=== PATIENT | female | born 1985 | race American Indian/Alaskan Native ===

== ENCOUNTER 2019-01-08 20:35 | Observation (INO) | payer MEDICAID ==
--- NOTE | 2019-01-08 21:06 | EDM.PDOC ---
ED HPI GENERAL MEDICAL PROBLEM - General Chief Complaint: General Stated Complaint: CHEST PAIN/UNABLE TO EAT/NAUSEA Time Seen by Provider: 01/08/19 21:05 Source of Information: Reports: Patient History Limitations: Reports: No Limitations - History of Present Illness INITIAL COMMENTS - FREE TEXT/NARRATIVE: 33-year-old female of [place] ancestry presents to the ED with multiple complaints. Chief complaint is inability to eat due to recurrent nausea and vomiting on a daily basis. She currently has some sternal left-sided chest pain which she described as sharp and stabbing and intermittent. Emesis has never contained any blood. Stools have been hard and painful to pass because she is unable to eat much.She does have a lot of heartburn and indigestion. Feels dizzy and lightheaded. She reports she's lost about 42 pounds over the last 3 months due to not being able to taper or keep food down. She appreciates that she is bruising much more easily than normal spontaneous bruises occur in her abdominal wall and her lower extremities particularly thighs for no good reason. She also has generalized pruritus particularly in her lower extremities and abdomen. She states that the emesis is never contained any blood. She states she was seen in [place] at one of the hospitals about 3 weeks ago and told that her magnesium and potassium were very low. I think she was advised to be admitted at that time but refused because of needing to look after her kids. She denies any intravenous drug abuse in the past. No blood transfusions. She came to the ED primarily because the abdominal pain seemed to be getting some much worse the last few days. She feels bloated and distended and can't fit into her jeans anymore. Has to wear loose fitting clothing. Onset: Gradual (Symptoms started about 3 months ago.) Duration: Week(s):, Chronic, Getting Worse Location: Reports: Generalized (Generalized sense of illness weakness weight loss abdominal distention, generalized pruritus, easy bruising) Quality: Reports: Other Severity: Moderate (See history of present illness) Improves with: Reports: None Worsens with: Reports: None Context: Reports: Other (Gradually getting more ill over the last 2-3 months with 45 pound weight loss.). Denies: Activity, Exercise, Lifting, Sick Contact , Trauma Associated Symptoms: Reports: Loss of Appetite, Malaise, Nausea/Vomiting, Shortness of Breath, Weakness, Other (Generalized. Feels abdominal bloating. Generalized pruritus. Easy bruising.). Denies: Confusion, Chest Pain, Cough, cough w sputum, Diaphoresis, Fever/Chills, Headaches, Rash (Intractable particular first thing in the mornings.), Seizure, Syncope (Mild.) Treatments DIRECTOR CHILD ABUSE THERAPY: Reports: Other (see below) (9.) - Related Data Allergies Allergy/AdvReac Type Severity Reaction Status Date / Time No Known Allergies Allergy Verified 01/08/19 20:42 Home Meds: Home Meds . 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: Reports: Musculoskeletal History: Reports: Fracture Other Musculoskeletal History: Tendon repair in arm Social & Family History - Family History Family Medical History: Noncontributory - Tobacco Use Smoking Status *Q: Former Smoker Used Tobacco, but Quit: Yes Month/Year Tobacco Last Used: 2009 - Recreational Drug Use Recreational Drug Use: No Other Recreational Drug Type: CBD - Living Situation & Occupation Living situation: Reports: Single Occupation: Unemployed ED ROS GENERAL - Review of Systems Review Of Systems: See Below Constitutional: Reports: Malaise, Weakness, Fatigue, Decreased Appetite (45-47 pound weight loss estimated in the last 3 months.), Weight Loss. Denies: Fever , Chills, Night Sweats, Diaphoresis, Weight Gain HEENT: Reports: Glasses Respiratory: Reports: Shortness of Breath. Denies: Wheezing, Pleuritic Chest Pain (At times.), Cough, Sputum, Hemoptysis Cardiovascular: Reports: Dyspnea on Exertion, Lightheadedness. Denies: Chest Pain, Blood Pressure Problem, Claudication, Edema, Orthopnea Endocrine: Reports: Fatigue GI/Abdominal: Reports: Abdominal Pain (See history present illness), Constipation, Decreased Appetite, Nausea, Vomiting (Intractable nausea and vomiting) : Reports: Other (Appreciates urine is darker byron in color and more concentrated than normal.) Musculoskeletal: Reports: Joint Pain (Knees hips or back) Skin: Reports: Bruising, Other (Notes that she bruises very easily. Complains of generalized pruritus without development of any rash.) Neurological: Reports: Dizziness, Difficulty Walking, Weakness. Denies: Confusion, Headache, Numbness, Syncope, Tingling, Tremors, Change in Speech Psychiatric: Reports: No Symptoms Hematologic/Lymphatic: Reports: Easy Bruising Immunologic: Reports: No Symptoms ED EXAM, GENERAL - Physical Exam Exam: See Below Exam Limited By: No Limitations General Appearance: Alert, WD/WN, Mild Distress, Other (Does have scleral icterus.) Eye Exam: Bilateral Eye: Normal Inspection, PERRL, Other (Mild bilateral scleral icterus.) Throat/Mouth: Other (Tongue is dry and coated.) Head: Atraumatic, Normocephalic Neck: Normal Inspection, Supple, Non-Tender, Full Range of Motion. No: Carotid Bruit, Lymphadenopathy (L), Lymphadenopathy (R) Respiratory/Chest: No Respiratory Distress, Lungs Clear, Normal Breath Sounds, No Accessory Muscle Use, Chest Non-Tender Cardiovascular: Normal Peripheral Pulses, Regular Rate, Rhythm, No Edema, No Gallop, No Murmur, No Rub Peripheral Pulses: 3+: Posterior Tibial (L), Posterior Tibial (R), Dorsalis Pedis (L), Dorsalis Pedis (R) GI/Abdominal: Normal Bowel Sounds, Soft, Tender (Tenderness in the distribution of the liver right upper quadrant of the abdomen. The liver itself is not palpable no splenomegaly identified. Suspect ascites but could not detect a good fluid wave.). No: No Mass, Pelvis Stable Back Exam: Normal Inspection, Full Range of Motion. No: CVA Tenderness (L), CVA Tenderness (R) Extremities: Normal Inspection, Normal Range of Motion. No: Pedal Edema, Joint Swelling Neurological: Alert, Oriented, CN II-XII Intact, Normal Cognition Psychiatric: Normal Affect Skin Exam: Other (Skin is mildly jaundiced again hard to appreciate as she is of [place] ancestry.) EKG INTERPRETATION EKG Date: 01/08/19 Time: 20:45 Rhythm: Other (Sinus tachycardia 113 per minute) Rate (Beats/Min): 113 Kennard: Normal P-Wave: Present QRS: Other (Decreased voltage both limb and precordial leads.) ST-T: Other (There is T-wave inversion V1 and V2 and then marked decreased voltage both limb and precordial leads.) QT: Prolonged (Mildly prolonged) EKG Interpretation Comments: Abnormal ECG Course - Vital Signs Last Recorded V/S: Last Vital Signs Temp 36.8 C 01/08/19 20:42 Pulse 116 H 01/08/19 20:42 Resp 16 01/08/19 20:42 BP 131/72 01/08/19 20:42 Pulse Ox 100 01/08/19 20:42 Orthostatic Blood Pressure [ 128/76 Standing] Orthostatic Blood Pressure [ 130/72 Sitting] Orthostatic Blood Pressure [ 122/68 Supine] - Orders/Labs/Meds Orders: Active Orders 24 hr Category Date Time Status Admission Status [Patient Status] [ADT] Routine ADT 01/08/19 23:39 Ordered EKG Documentation Completion [RC] STAT Care 01/08/19 21:16 Active Orthostatic Vital Signs [RC] ASDIRECTED Care 01/08/19 21:06 Active Abdomen Pelvis w Cont [CT] Stat Exams 01/08/19 22:18 Taken URINALYSIS W/MICROSCOPIC [UA W/MICROSCOPIC] [URIN] Stat Lab 01/08/19 23:30 Ordered Dextrose 5%-Lactated Ringers 1,000 ml Med 01/08/19 21:15 Active IV ASDIRECTED Magnesium Sulfate/Water [Magnesium Sulfate in Water Med 01/08/19 22:54 Active Premix] 4 gm Premix Bag 1 bag IV ONETIME Medication Orders Dextrose/Lactated Ringer's (Dextrose 5%-Lactated Ringers) 1,000 mls @ 500 mls/ hr IV ASDIRECTED [facility] Last Admin: 01/08/19 21:44 Dose: 500 mls/hr Magnesium Sulfate 4 gm/ Premix 50 mls @ 12.5 mls/hr IV ONETIME ONE Stop: 01/09/19 02:53 Last Admin: 01/08/19 23:30 Dose: 12.5 mls/hr Labs: Laboratory Tests 01/08/19 01/08/19 01/08/19 Range/Units 20:55 20:55 20:55 WBC 14.81 H (3.98-10.04) K/mm3 RBC 2.66 L (3.98-5.22) M/mm3 Hgb 9.2 L D (11.2-15.7) gm/L Hct 27.7 L (34.1-44.9) % MCV 104.1 H D (79.4-94.8) fl MCH 34.6 H (25.6-32.2) pg MCHC 33.2 (32.2-35.5) g/dl RDW Std Deviation 56.5 H (36.4-46.3) fL Plt Count 210 (182-369) K/mm3 MPV 9.4 (9.4-12.3) fl Neutrophils % (Manual) 74 H (40-60) % Band Neutrophils % 0 (0-10) % Lymphocytes % (Manual) 19 L (20-40) % Atypical Lymphs % 0 % Monocytes % (Manual) 4 (2-10) % Eosinophils % (Manual) 3 (0.7-5.8) % Basophils % (Manual) 0 L (0.1-1.2) Toxic Granulation Few Platelet Estimate Adequate Anisocytosis 2+ moderate Macrocytosis 2+ moderate PT 20.4 H (9.5-12.1) SECONDS INR 1.90 APTT 44 H (24-31) SECONDS Sodium 135 L (136-145) mEq/L Potassium 2.8 L (3.5-5.1) mEq/L Chloride 101 (98-107) mEq/L Carbon Dioxide 24 (21-32) mEq/L Anion Gap 12.8 (5-15) BUN 6 L (7-18) mg/dL Creatinine 1.0 (0.55-1.02) mg/dL Est Cr Clr Drug Dosing 67.43 mL/min Estimated GFR (MDRD) > 60 (>60) mL/min BUN/Creatinine Ratio 6.0 L (14-18) Glucose 141 H (74-106) mg/dL Calcium 7.7 L (8.5-10.1) mg/dL Magnesium 1.4 L (1.8-2.4) mg/dl Total Bilirubin 4.3 H (0.2-1.0) mg/dL GGT 115 H (5-55) U/L AST 99 H (15-37) U/L ALT 34 (14-59) U/L Alkaline Phosphatase 97 (46-116) U/L CK-MB (CK-2) < 0.5 (0-3.6) ng/ml Troponin I < 0.017 (0.00-0.056) ng/mL C-Reactive Protein 3.6 H* (<1.0) mg/dL NT-Pro-B Natriuret Pep (0-125) pg/mL Total Protein 8.6 H (6.4-8.2) g/dl Albumin 1.5 L (3.4-5.0) g/dl Globulin 7.1 gm/dL Albumin/Globulin Ratio 0.2 L (1-2) Lipase 91 (73-393) U/L Urine Color (Yellow) Urine Appearance (Clear) Urine pH (5.0-8.0) Ur Specific [place] (1.005-1.030) Urine Protein (Negative) Urine Glucose (UA) (Negative) Urine Ketones (Negative) Urine Occult Blood (Negative) Urine Nitrite (Negative) Urine Bilirubin (Negative) Urine Urobilinogen (0.2-1.0) Ur Leukocyte Esterase (Negative) H. pylori IgG Antibody (NEGATIVE) Hepatitis C Antibody (NEGATIVE) 01/08/19 01/08/19 01/08/19 Range/Units 20:55 20:55 23:30 WBC (3.98-10.04) K/mm3 RBC (3.98-5.22) M/mm3 Hgb (11.2-15.7) gm/L Hct (34.1-44.9) % MCV (79.4-94.8) fl MCH (25.6-32.2) pg MCHC (32.2-35.5) g/dl RDW Std Deviation (36.4-46.3) fL Plt Count (182-369) K/mm3 MPV (9.4-12.3) fl Neutrophils % (Manual) (40-60) % Band Neutrophils % (0-10) % Lymphocytes % (Manual) (20-40) % Atypical Lymphs % % Monocytes % (Manual) (2-10) % Eosinophils % (Manual) (0.7-5.8) % Basophils % (Manual) (0.1-1.2) Toxic Granulation Platelet Estimate Anisocytosis Macrocytosis PT (9.5-12.1) SECONDS INR APTT (24-31) SECONDS Sodium (136-145) mEq/L Potassium (3.5-5.1) mEq/L Chloride (98-107) mEq/L Carbon Dioxide (21-32) mEq/L Anion Gap (5-15) BUN (7-18) mg/dL Creatinine (0.55-1.02) mg/dL Est Cr Clr Drug Dosing mL/min Estimated GFR (MDRD) (>60) mL/min BUN/Creatinine Ratio (14-18) Glucose (74-106) mg/dL Calcium (8.5-10.1) mg/dL Magnesium (1.8-2.4) mg/dl Total Bilirubin (0.2-1.0) mg/dL GGT (5-55) U/L AST (15-37) U/L ALT (14-59) U/L Alkaline Phosphatase (46-116) U/L CK-MB (CK-2) (0-3.6) ng/ml Troponin I (0.00-0.056) ng/mL C-Reactive Protein (<1.0) mg/dL NT-Pro-B Natriuret Pep 608 H (0-125) pg/mL Total Protein (6.4-8.2) g/dl Albumin (3.4-5.0) g/dl Globulin gm/dL Albumin/Globulin Ratio (1-2) Lipase (73-393) U/L Urine Color [place] H (Yellow) Urine Appearance Cloudy H (Clear) Urine pH 5.5 (5.0-8.0) Ur Specific [place] 1.020 (1.005-1.030) Urine Protein 2+ H (Negative) Urine Glucose (UA) Trace H (Negative) Urine Ketones 1+ H (Negative) Urine Occult Blood 3+ H (Negative) Urine Nitrite Negative (Negative) Urine Bilirubin 3+ H (Negative) Urine Urobilinogen 4.0 H (0.2-1.0) Ur Leukocyte Esterase Negative (Negative) H. pylori IgG Antibody Negative (NEGATIVE) Hepatitis C Antibody Negative (NEGATIVE) Meds: Medications Generic Name Dose Route Start Last Admin Trade Name Freq PRN Reason Stop Dose Admin Dextrose/Lactated Ringer's 1,000 mls @ 500 mls/hr 01/08/19 21:15 01/08/19 21: 44 Dextrose 5%-Lactated Ringers IV 500 mls/hr ASDIRECTED JOHN Administration Magnesium Sulfate 4 gm/ Premix 50 mls @ 12.5 mls/hr 01/08/19 22:54 01/08/19 23:30 IV 01/09/19 02:53 12.5 mls/hr ONETIME ONE Administration Discontinued Medications Generic Name Dose Route Start Last Admin Trade Name Freq PRN Reason Stop Dose Admin Hydromorphone HCl 0.5 mg 01/08/19 21:15 01/08/19 21:46 Dilaudid IVPUSH 01/08/19 21:16 0.5 mg ONETIME ONE Administration Iohexol 100 ml 01/08/19 22:52 01/08/19 23:22 Omnipaque-300 IVPUSH 01/08/19 22:53 100 ml ONETIME ONE Administration Metoclopramide HCl 10 mg 01/08/19 21:14 01/08/19 21:45 Reglan IVPUSH 01/08/19 21:15 10 mg ONETIME ONE Administration Ondansetron HCl 4 mg 01/08/19 23:37 01/08/19 23:41 Zofran IVPUSH 01/08/19 23:38 4 mg ONETIME ONE Administration - Radiology Interpretation Free Text/Narrative:: 33-year-old female whom [place] ancestry presents to the ED not feeling well for the better part of 3 months. She states she used to drink alcohol heavily up until 3 months ago when she quit. Since that time she is continuing to have intermittent nausea and vomiting which is usually bilious without any hematemesis. She is appreciated a 47 pound weight loss over the last 3 months. She feels that her abdomen is more distended than normal and cannot fit into her jeans. She has generalized pruritus and has appreciated that she bruises very easily. She states she was seen in [place] about 3 weeks ago not sure which hospital told that she had low serum potassium level and serum magnesium level. I believe she was instructed to stay in the hospital but she declined due to need to look after her children. On examination she is showing signs and symptoms of cirrhosis of the liver. She has mild scleral icterus. Marked tenderness right upper quadrant of the abdomen without any obvious hepatomegaly or splenomegaly. No caput medusa. She has numerous superficial ecchymoses suggesting inability to clot well. She complains of generalized pruritus with excoriations on both lower extremities from scratching. Clinically she appears to have some mild ascites. Plan lab work to include clotting times and GGT. If renal function is okay then we'll proceed with CT of the abdomen with IV contrast to assess the degree of ascites and see if there is any significant portal hypertension. - Re-Assessments/Exams Free Text/Narrative Re-Assessment/Exam: 01/08/19 22:05 Labs reveal an elevated white count at 14.81 with 74% neutrophils and no bands reported. Hemoglobin is low at 9.2. Hematocrit is 27.7. MCV is 104.1. Platelet count is 210,000. The slight shows 2+ anisocytosis and 2+ macrocytosis. PT is 20.4 with an INR of 1.90. PTT is 44 i.e. auto anticoagulated. 01/08/19 22:17 Sodium is 135. Potassium is 2.8. Chloride is 101 with a bicarbonate of 24. And a gap is 12.8. BUN is 6 with a creatinine of 1.0. Estimated GFR is greater than 60. Glucose is 141. Calcium is low at 7.7. Magnesium is low at 1.4. Total bilirubin is 4.3. GGT 1:15 mildly elevated. AST is 99 with an ALT of 34. Alkaline phosphatase is normal at 97. CK-MB fraction less than 0.5. Troponin I less than 0.017. C-reactive protein is 3.6. BNP is 608. Total protein is 8.6 with an albumin fraction of 1.5. Lipase is 91. H. pylori was negative. Her kidney function is good enough to proceed with CT the abdomen with IV contrast only to confirm clinical suspicion of cirrhosis of the liver and to confirm whether or not there is portal hypertension and the amount of ascites. 01/08/19 23:30: CT the abdomen and pelvis is before then performed with IV contrast only. Lower portions of the visualized lung parnell appear clear. Cardiac silhouette appears to be normal as well. The abdomen reveals a large amount of ascites that succumbed circumvents both the liver and the spleen. She has an IUD and a normal-size uterus. Pancreas is difficult to see. Kidneys appear to be mildly atrophic without stones or obstruction. Adrenal glands do not appear to be enlarged and are difficult to identify particular in the right side due to ascites. Mild amount of edema throughout the mesentery. Bowel gas pattern appears to be normal. The liver itself appears to be homogeneous. It does not appear to be abnormal in size or shape. No obvious evidence of portal hypertension evident. Discussed the case with Dr. Griffith- web production manager hospitalist and plan will be to admit her to the [facility] surgery floor for observation status primarily to improve her hypokalemia and hypomagnesemia overnight with intravenous replacement therapy. Suggest starting on Aldactone 25 mg twice daily to prevent hypokalemia and to start working as a diuretic. She should also be started on Lasix 40 mg daily to help with her ascites. Lactulose 20 g ideally twice daily if she can tolerate it. Bridge orders will be written. She will have repeat magnesium and potassium levels checked later this tomorrow morning. Departure - Departure Time of Disposition: 23:46 Disposition: Refer to Observation Condition: Fair Clinical Impression: Blood coagulation disorder, Hypomagnesemia, Hypokalemia, Intractable nausea and vomiting Cirrhosis of liver with ascites Qualifiers: Hepatic cirrhosis type: alcoholic cirrhosis Qualified Code(s): K70.31 - Alcoholic cirrhosis of liver with ascites - Discharge Information *PRESCRIPTION DRUG MONITORING PROGRAM REVIEWED*: No *COPY OF PRESCRIPTION DRUG MONITORING REPORT IN PATIENT SKY: No Referrals: PCP,None [Primary Care Provider] - Forms: ED Department Discharge - My Orders Last 24 Hours: My Active Orders 01/08/19 21:06 Orthostatic Vital Signs [RC] ASDIRECTED 01/08/19 21:15 Dextrose 5%-Lactated Ringers 1,000 ml IV ASDIRECTED 01/08/19 21:16 EKG Documentation Completion [RC] STAT 01/08/19 22:18 Abdomen Pelvis w Cont [CT] Stat 01/08/19 22:54 Magnesium Sulfate/Water [Magnesium Sulfate in Water Premix] 4 gm Premix Bag 1 bag IV ONETIME 01/08/19 23:30 URINALYSIS W/MICROSCOPIC [UA W/MICROSCOPIC] [URIN] Stat 01/08/19 23:39 Admission Status [Patient Status] [ADT] Routine - Assessment/Plan Last 24 Hours: My Active Orders 01/08/19 21:06 Orthostatic Vital Signs [RC] ASDIRECTED 01/08/19 21:15 Dextrose 5%-Lactated Ringers 1,000 ml IV ASDIRECTED 01/08/19 21:16 EKG Documentation Completion [RC] STAT 01/08/19 22:18 Abdomen Pelvis w Cont [CT] Stat 01/08/19 22:54 Magnesium Sulfate/Water [Magnesium Sulfate in Water Premix] 4 gm Premix Bag 1 bag IV ONETIME 01/08/19 23:30 URINALYSIS W/MICROSCOPIC [UA W/MICROSCOPIC] [URIN] Stat 01/08/19 23:39 Admission Status [Patient Status] [ADT] Routine
[2019-01-08] MEDS ORDERED: Metoclopramide 10 MG/2 ML SDV IVPUSH ONE (21:14)
[2019-01-08] MEDS ORDERED: HYDROmorphone 1 MG/ML Syringe IVPUSH ONE (21:15)
[2019-01-08] MEDS ORDERED: Dextrose 5%-Lactated Ringers 1,000 ML IV SCH (21:15)
[2019-01-08] MEDS ORDERED: Iohexol 647 MG/ML 100 ML Bottle IVPUSH ONE (22:52)
[2019-01-08] MEDS ORDERED: Magnesium Sulfate/Water 4 GM in Premix Bag 1 BAG IV ONE (22:54)
[2019-01-08] MEDS ORDERED: Ondansetron 4 MG/2 ML SDV IVPUSH ONE (23:37)
[2019-01-09] MEDS ORDERED: Scopolamine 1.5 MG Transdermal Patch TOP ONE (00:20)
[2019-01-09] MEDS ORDERED: Metoclopramide 10 MG/2 ML SDV IVPUSH PRN (00:37)
[2019-01-09] MEDS ORDERED: Sodium Chloride 0.9% 1,000 ML IV SCH (00:45)
[2019-01-09] MEDS: Potassium Chloride 10 MEQ in Premix Bag 1 BAG IV SCH ×3 (01:00→03:17)
[2019-01-09] MEDS ORDERED: Ondansetron 4 MG/2 ML SDV IVPUSH PRN (01:40)
[2019-01-09] MEDS ORDERED: Lactulose Soln 10 GM/15 ML 30 ML UD Cup PO SCH (09:00)
[2019-01-09] MEDS ORDERED: Spironolactone 25 MG Tab PO SCH (09:00)
--- NOTE | 2019-01-09 09:02 | CT ---
CT abdomen and pelvis Technique: Multiple axial sections were obtained from above the dome of the diaphragm inferiorly through the pubic symphysis. Intravenous contrast was utilized. No oral contrast was utilized. Delayed images were obtained through the abdomen as well as bladder. Comparison: No prior abdominal imaging. Findings: Mild atelectasis is noted within both lung bases. Liver is mildly nodular having the appearance of cirrhosis. Ascites which is moderate amount is seen within the abdomen and pelvis. Spleen measures at the upper limits of normal at 13.1 cm. No varicosities are appreciated at this time. Gallbladder is somewhat dilated without calcified gallstones. Pancreas shows no discrete abnormality. Adrenal glands show no nodule. Kidneys show symmetric contrast enhancement without hydronephrosis or mass. Aorta shows no aneurysm. No retroperitoneal adenopathy or mesenteric abnormalities are seen. IUD is present within the uterus. No pelvic mass or adenopathy is seen. No free fluid or inflammatory change is seen. No bowel dilatation is identified. Delayed images show no contrast within the bladder suggesting dehydration. Impression: 1. Cirrhotic change within the liver with moderate ascites. Spleen size at the upper limits of normal at 13.1 cm. 2. Dilated gallbladder without calcified gallstones. Findings may relate to fasting state. 3. No contrast is seen within the bladder on delayed images raising the possibility of dehydration. 4. Other incidental findings. Diagnostic code #3 I agree with preliminary report from [facility], finalized on 01/09/19, 1:22 AM Central Time
[2019-01-09] MEDS ORDERED: oxyCODONE 5 MG Tab PO PRN (11:23)
--- NOTE | 2019-01-09 11:30 | US ---
Abdominal ultrasound: Multiple real-time images were obtained. Comparison: Prior CT abdomen and pelvis exam of 01/08/19. Liver is echogenic with nodular edges which is felt compatible with cirrhotic change. Ascites is seen within the abdomen. Gallbladder shows no shadowing gallstones. No gallbladder wall thickening is seen. No biliary duct dilatation is seen. Proximal aorta is seen and appears unremarkable. Distal aorta is obscured from bowel gas. Majority of the pancreas is obscured from bowel gas. Kidneys show no hydronephrosis or discrete mass. Right kidney length is 10.8 cm, left kidney length is 10.3 cm. Spleen size at the upper limits of normal at 13.5 cm. Portal vein shows normal hepatopedal flow. Inferior vena cava is patent. Impression: 1. Gallbladder shows no shadowing gallstones, gallbladder wall thickening or biliary duct dilatation. 2. Cirrhotic change within the liver. 3. Ascites. 4. Spleen size at the upper limits of normal in length. Diagnostic code #3
--- NOTE | 2019-01-09 12:49 | PCM.HP ---
H&P History of Present Illness - General Date of Service: 01/09/19 Admit Problem/Dx: Admission Diagnosis/Problem Admission Diagnosis/Problem Cirrhosis of liver with ascites Source of Information: Patient, Provider - History of Present Illness Initial Comments - Free Text/Narative: 33-year-old female is admitted under observation status from the emergency room for hypokalemia and hypomagnesemia. Patient states that over the last couple months she has been feeling poorly. She stopped drinking 2 months ago but previous to that was drinking 99 proof alcohol shots 2-3 per day. We will last couple of months she has had a 42 pound weight loss. She states that she's had progressive abdominal pain worse on the right side and epigastrium. She has been vomiting off and on for the last couple of months. She states that she vomits at least once a day. She denies any blood in her vomit. She states that is usually uses for food that she previously 8. Spicy foods and pizza are worse. She is generally settle okay. [place] juice makes her stomach hurt. She has been constipated without any black tarry stools or blood in her stools. She complains of headaches, weakness, fatigue, leg itching and dryness, low back pain where she had epidurals. She complains of heartburn and indigestion feels dizzy and lightheaded. She has been bruising more easily and has had spontaneous bruising of her abdomen and lower extremities. Apparently, she was seen in [place] [id number] to the [facility] within the last month and had a low magnesium and potassium. She did not want to be admitted and refused admission. Patient does have 2 children with no one to care for them when she is gone. She has a sister with end-stage liver disease at 34 years of age and her mother of liver disease. She has alcoholism throughout her family including close in distant relatives. She has been using CBD oil and marijuana coming for nausea. Last use was 2 weeks ago. in the emergency room patient was started on replacement. Both her magnesium and potassium. Repeat magnesium and complex metabolic panel did show improvement and normalization of her potassium and magnesium. INR was 1.9 with an initial GGT of 115, AST 99, ALT 34, white count 14.8. ECG done in the emergency room showed sinus tachycardia 113 bpm with T-wave inversion anteriorly and low voltage in the anterior lateral leads. CT scan was done in the emergency room which showed: 1 cirrhotic change within the liver with moderate ascites. Spleen size at the upper limits of normal at 13.1 cm. 2. Dilated gallbladder without calcified gallstones. Findings may be related to fasting state. 3. No contrast is seen within the bladder on delayed images raising the possibility of dehydration. 4. Other incidental findings. Abdominal Pain Score (Numeric/FACES): 7 - Related Data Allergies/Adverse Reactions: Allergies Allergy/AdvReac Type Severity Reaction Status Date / Time No Known Allergies Allergy Verified 01/08/19 20:42 Home Medications: Home Meds . 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: Musculoskeletal History: Reports: Fracture Other Musculoskeletal History: Tendon repair in arm, ankle broken Neurological History: Reports: Migraines Psychiatric History: Reports: Depression Other Dermatologic History: ingrown hairs in armpits - Past Surgical History GI Surgical History: Reports: None Neurological Surgical History: Reports: None Musculoskeletal Surgical History: Reports: None Dermatological Surgical History: Reports: Other (See Below) Social & Family History - Family History Family Medical History: Noncontributory - Tobacco Use Smoking Status *Q: Never Smoker Used Tobacco, but Quit: Yes Month/Year Tobacco Last Used: 2009 Second Hand Smoke Exposure: No - Caffeine Use Caffeine Use: Reports: Coffee, Soda, Tea - Alcohol Use Date of Last Drink: 10/17/18 - Recreational Drug Use Recreational Drug Use: Yes Recreational Drug Type: Reports: Other (see below) Other Recreational Drug Type: CBD oil and gummies- took everyday to help with nausea, stopped 1 week ago - Living Situation & Occupation Living situation: Reports: Single Occupation: Unemployed H&P Review of Systems - Review of Systems: Review Of Systems: ROS reveals no pertinent complaints other than HPI. General: Reports: Malaise, Weakness, Fatigue Exam - Exam Exam: See Below - Vital Signs Vital Signs: Last Vital Signs Temp 97.7 F 01/09/19 03:15 Pulse 85 01/09/19 03:15 Resp 16 01/09/19 03:15 BP 105/49 L 01/09/19 03:15 Pulse Ox 96 01/09/19 11:18 Orthostatic Blood Pressure [ 128/76 Standing] Orthostatic Blood Pressure [ 130/72 Sitting] Orthostatic Blood Pressure [ 122/68 Supine] Weight: 173 lb 4.815 oz - Exam General: Alert, Oriented, Cooperative HEENT: Conjunctiva Clear, EACs Clear, Mucosa Moist & [place], Posterior Pharynx Clear Neck: Supple, Trachea Midline Lungs: Clear to Auscultation, Normal Respiratory Effort Cardiovascular: Regular Rate, Regular Rhythm GI/Abdominal Exam: Other (epigastric and right upper quadrant tenderness present. No guarding or rebound. Bowel sounds are present and active. Difficult to obtain liver or spleen size.) Extremities: Normal Inspection, Normal Range of Motion, Non-Tender, No Pedal Edema Skin: Warm, Dry, Intact Neuro Extensive - Mental Status: Alert, Oriented x3 Neuro Extensive - Motor, Sensory, Reflexes: CN II-XII Intact, Normal Gait Psychiatric: Alert, Normal Affect, Normal Mood - Patient Data Lab Results Last 24 hrs: Laboratory Results - last 24 hr 01/08/19 01/08/19 01/08/19 Range/Units 20:55 20:55 20:55 WBC 14.81 H (3.98-10.04) K/mm3 RBC 2.66 L (3.98-5.22) M/mm3 Hgb 9.2 L D (11.2-15.7) gm/L Hct 27.7 L (34.1-44.9) % MCV 104.1 H D (79.4-94.8) fl MCH 34.6 H (25.6-32.2) pg MCHC 33.2 (32.2-35.5) g/dl RDW Std Deviation 56.5 H (36.4-46.3) fL Plt Count 210 (182-369) K/mm3 MPV 9.4 (9.4-12.3) fl Neutrophils % (Manual) 74 H (40-60) % Band Neutrophils % 0 (0-10) % Lymphocytes % (Manual) 19 L (20-40) % Atypical Lymphs % 0 % Monocytes % (Manual) 4 (2-10) % Eosinophils % (Manual) 3 (0.7-5.8) % Basophils % (Manual) 0 L (0.1-1.2) Toxic Granulation Few Platelet Estimate Adequate Hypochromasia Anisocytosis 2+ moderate Macrocytosis 2+ moderate RBC Morph Comment PT 20.4 H (9.5-12.1) SECONDS INR 1.90 APTT 44 H (24-31) SECONDS Sodium 135 L (136-145) mEq/L Potassium 2.8 L (3.5-5.1) mEq/L Chloride 101 (98-107) mEq/L Carbon Dioxide 24 (21-32) mEq/L Anion Gap 12.8 (5-15) BUN 6 L (7-18) mg/dL Creatinine 1.0 (0.55-1.02) mg/dL Est Cr Clr Drug Dosing 67.43 mL/min Estimated GFR (MDRD) > 60 (>60) mL/min BUN/Creatinine Ratio 6.0 L (14-18) Glucose 141 H (74-106) mg/dL Calcium 7.7 L (8.5-10.1) mg/dL Magnesium 1.4 L (1.8-2.4) mg/dl Total Bilirubin 4.3 H (0.2-1.0) mg/dL GGT 115 H (5-55) U/L AST 99 H (15-37) U/L ALT 34 (14-59) U/L Alkaline Phosphatase 97 (46-116) U/L Ammonia (11-32) umol/L CK-MB (CK-2) < 0.5 (0-3.6) ng/ml Troponin I < 0.017 (0.00-0.056) ng/mL C-Reactive Protein 3.6 H* (<1.0) mg/dL NT-Pro-B Natriuret Pep (0-125) pg/mL Total Protein 8.6 H (6.4-8.2) g/dl Albumin 1.5 L (3.4-5.0) g/dl Globulin 7.1 gm/dL Albumin/Globulin Ratio 0.2 L (1-2) Lipase 91 (73-393) U/L Urine Color (Yellow) Urine Appearance (Clear) Urine pH (5.0-8.0) Ur Specific [place] (1.005-1.030) Urine Protein (Negative) Urine Glucose (UA) (Negative) Urine Ketones (Negative) Urine Occult Blood (Negative) Urine Nitrite (Negative) Urine Bilirubin (Negative) Urine Urobilinogen (0.2-1.0) Ur Leukocyte Esterase (Negative) Urine RBC (0-5) /hpf Urine WBC (0-5) /hpf Ur Squamous Epith Cells (0-5) /hpf Ur Renal Epithelial Cell (0-5) /hpf Amorphous Sediment (NOT SEEN) /hpf Urine Bacteria (FEW) /hpf Hyaline Casts (0-5) /lpf Fine Granular Casts (0-5) /lpf Broad Casts (0-5) /hpf Urine Mucus (FEW) /hpf H. pylori IgG Antibody (NEGATIVE) Hepatitis C Antibody (NEGATIVE) 01/08/19 01/08/19 01/08/19 Range/Units 20:55 20:55 23:30 WBC (3.98-10.04) K/mm3 RBC (3.98-5.22) M/mm3 Hgb (11.2-15.7) gm/L Hct (34.1-44.9) % MCV (79.4-94.8) fl MCH (25.6-32.2) pg MCHC (32.2-35.5) g/dl RDW Std Deviation (36.4-46.3) fL Plt Count (182-369) K/mm3 MPV (9.4-12.3) fl Neutrophils % (Manual) (40-60) % Band Neutrophils % (0-10) % Lymphocytes % (Manual) (20-40) % Atypical Lymphs % % Monocytes % (Manual) (2-10) % Eosinophils % (Manual) (0.7-5.8) % Basophils % (Manual) (0.1-1.2) Toxic Granulation Platelet Estimate Hypochromasia Anisocytosis Macrocytosis RBC Morph Comment PT (9.5-12.1) SECONDS INR APTT (24-31) SECONDS Sodium (136-145) mEq/L Potassium (3.5-5.1) mEq/L Chloride (98-107) mEq/L Carbon Dioxide (21-32) mEq/L Anion Gap (5-15) BUN (7-18) mg/dL Creatinine (0.55-1.02) mg/dL Est Cr Clr Drug Dosing mL/min Estimated GFR (MDRD) (>60) mL/min BUN/Creatinine Ratio (14-18) Glucose (74-106) mg/dL Calcium (8.5-10.1) mg/dL Magnesium (1.8-2.4) mg/dl Total Bilirubin (0.2-1.0) mg/dL GGT (5-55) U/L AST (15-37) U/L ALT (14-59) U/L Alkaline Phosphatase (46-116) U/L Ammonia (11-32) umol/L CK-MB (CK-2) (0-3.6) ng/ml Troponin I (0.00-0.056) ng/mL C-Reactive Protein (<1.0) mg/dL NT-Pro-B Natriuret Pep 608 H (0-125) pg/mL Total Protein (6.4-8.2) g/dl Albumin (3.4-5.0) g/dl Globulin gm/dL Albumin/Globulin Ratio (1-2) Lipase (73-393) U/L Urine Color [place] H (Yellow) Urine Appearance Cloudy H (Clear) Urine pH 5.5 (5.0-8.0) Ur Specific [place] 1.020 (1.005-1.030) Urine Protein 2+ H (Negative) Urine Glucose (UA) Trace H (Negative) Urine Ketones 1+ H (Negative) Urine Occult Blood 3+ H (Negative) Urine Nitrite Negative (Negative) Urine Bilirubin 3+ H (Negative) Urine Urobilinogen 4.0 H (0.2-1.0) Ur Leukocyte Esterase Negative (Negative) Urine RBC 10-20 H (0-5) /hpf Urine WBC 0-5 (0-5) /hpf Ur Squamous Epith Cells 0-5 (0-5) /hpf Ur Renal Epithelial Cell 0-5 (0-5) /hpf Amorphous Sediment Few H (NOT SEEN) /hpf Urine Bacteria Few (FEW) /hpf Hyaline Casts 30-40 H (0-5) /lpf Fine Granular Casts 0-5 (0-5) /lpf Broad Casts 0-5 (0-5) /hpf Urine Mucus Moderate H (FEW) /hpf H. pylori IgG Antibody Negative (NEGATIVE) Hepatitis C Antibody Negative (NEGATIVE) 01/09/19 01/09/19 01/09/19 Range/Units 05:20 05:20 08:10 WBC 12.13 H (3.98-10.04) K/mm3 RBC 2.33 L (3.98-5.22) M/mm3 Hgb 8.0 L (11.2-15.7) gm/L Hct 24.4 L (34.1-44.9) % MCV 104.7 H (79.4-94.8) fl MCH 34.3 H (25.6-32.2) pg MCHC 32.8 (32.2-35.5) g/dl RDW Std Deviation 56.0 H (36.4-46.3) fL Plt Count 181 L (182-369) K/mm3 MPV 9.4 (9.4-12.3) fl Neutrophils % (Manual) 90 H (40-60) % Band Neutrophils % 0 (0-10) % Lymphocytes % (Manual) 5 L (20-40) % Atypical Lymphs % 0 % Monocytes % (Manual) 3 (2-10) % Eosinophils % (Manual) 1 (0.7-5.8) % Basophils % (Manual) 1 (0.1-1.2) Toxic Granulation Platelet Estimate Adequate Hypochromasia 3+ marked Anisocytosis 2+ moderate Macrocytosis RBC Morph Comment Abnormal PT (9.5-12.1) SECONDS INR APTT (24-31) SECONDS Sodium 134 L (136-145) mEq/L Potassium 3.5 (3.5-5.1) mEq/L Chloride 103 (98-107) mEq/L Carbon Dioxide 24 (21-32) mEq/L Anion Gap 10.5 (5-15) BUN 5 L (7-18) mg/dL Creatinine 0.8 (0.55-1.02) mg/dL Est Cr Clr Drug Dosing 87.99 mL/min Estimated GFR (MDRD) > 60 (>60) mL/min BUN/Creatinine Ratio 6.3 L (14-18) Glucose 96 (74-106) mg/dL Calcium 7.9 L (8.5-10.1) mg/dL Magnesium 2.3 (1.8-2.4) mg/dl Total Bilirubin 3.7 H (0.2-1.0) mg/dL GGT (5-55) U/L AST 84 H (15-37) U/L ALT 29 (14-59) U/L Alkaline Phosphatase 82 (46-116) U/L Ammonia 26 (11-32) umol/L CK-MB (CK-2) (0-3.6) ng/ml Troponin I (0.00-0.056) ng/mL C-Reactive Protein (<1.0) mg/dL NT-Pro-B Natriuret Pep (0-125) pg/mL Total Protein 7.6 (6.4-8.2) g/dl Albumin 1.3 L (3.4-5.0) g/dl Globulin 6.3 gm/dL Albumin/Globulin Ratio 0.2 L (1-2) Lipase (73-393) U/L Urine Color (Yellow) Urine Appearance (Clear) Urine pH (5.0-8.0) Ur Specific [place] (1.005-1.030) Urine Protein (Negative) Urine Glucose (UA) (Negative) Urine Ketones (Negative) Urine Occult Blood (Negative) Urine Nitrite (Negative) Urine Bilirubin (Negative) Urine Urobilinogen (0.2-1.0) Ur Leukocyte Esterase (Negative) Urine RBC (0-5) /hpf Urine WBC (0-5) /hpf Ur Squamous Epith Cells (0-5) /hpf Ur Renal Epithelial Cell (0-5) /hpf Amorphous Sediment (NOT SEEN) /hpf Urine Bacteria (FEW) /hpf Hyaline Casts (0-5) /lpf Fine Granular Casts (0-5) /lpf Broad Casts (0-5) /hpf Urine Mucus (FEW) /hpf H. pylori IgG Antibody (NEGATIVE) Hepatitis C Antibody (NEGATIVE) Result Diagrams: 01/09/19 05:20 01/09/19 05:20 - Problem List (1) Blood coagulation disorder SNOMED Code(s): 63809727 ICD Code: D68.9 - COAGULATION DEFECT, UNSPECIFIED Status: Acute Current Visit: Yes (2) Cirrhosis of liver with ascites SNOMED Code(s): 71022863 ICD Code: K74.60 - UNSPECIFIED CIRRHOSIS OF LIVER; R18.8 - OTHER ASCITES Status: Acute Current Visit: Yes Qualifiers: Hepatic cirrhosis type: alcoholic cirrhosis Qualified Code(s): K70.31 - Alcoholic cirrhosis of liver with ascites (3) Hypokalemia SNOMED Code(s): 83397520 ICD Code: E87.6 - HYPOKALEMIA Status: Acute Current Visit: Yes (4) Hypomagnesemia SNOMED Code(s): 036562891 ICD Code: E83.42 - HYPOMAGNESEMIA Status: Acute Current Visit: Yes (5) Intractable nausea and vomiting SNOMED Code(s): 733833182 ICD Code: R11.2 - NAUSEA WITH VOMITING, UNSPECIFIED Status: Acute Current Visit: Yes Problem List Initiated/Reviewed/Updated: Yes Orders Last 24hrs: Active Orders 24 hr Category Date Time Status Admission Status [Patient Status] [ADT] Routine ADT 01/08/19 23:39 Active Height and Weight [RC] 04 Care 01/09/19 06:36 Active Intake and Output [RC] 04,16 Care 01/09/19 06:37 Active Notify Provider Consults [RC] ASDIRECTED Care 01/09/19 11:22 Active Orthostatic Vital Signs [RC] ASDIRECTED Care 01/08/19 21:06 Active Oxygen Therapy [RC] PRN Care 01/09/19 06:36 Active Oxygen Therapy [RC] PRN Care 01/09/19 11:18 Active Pulse Oximetry [RC] PRN Care 01/09/19 06:37 Active Up ad Evelin [RC] ASDIRECTED Care 01/09/19 00:41 Active VTE/DVT Education [RC] 10, Care 01/09/19 11:18 Active Vital Signs [RC] Q6H Care 01/09/19 06:36 Active Consult to Case Management/Triage Specialist [CONS] Cons 01/09/19 11:18 Active Routine Consult to Operation Shift Supervisor [CONS] Routine Cons 01/09/19 06:36 Active Consult to Physician [CONS] Routine Cons 01/09/19 11:18 Active Consult to Spiritual Care [CONS] Routine Cons 01/09/19 06:36 Active Clear Liquid Diet [DIET] Diet 01/09/19 Lunch Active CBC WITH AUTO DIFF [HEME] AM Lab 01/10/19 05:11 Ordered CBC WITH AUTO DIFF [HEME] AM Lab 01/11/19 05:11 Ordered CBC WITH AUTO DIFF [HEME] AM Lab 01/12/19 05:11 Ordered CBC WITH AUTO DIFF [HEME] AM Lab 01/13/19 05:11 Ordered CMP [COMPREHENSIVE METABOLIC PN,CMP] [CHEM] AM Lab 01/10/19 05:11 Ordered CMP [COMPREHENSIVE METABOLIC PN,CMP] [CHEM] AM Lab 01/11/19 05:11 Ordered CMP [COMPREHENSIVE METABOLIC PN,CMP] [CHEM] AM Lab 01/12/19 05:11 Ordered CMP [COMPREHENSIVE METABOLIC PN,CMP] [CHEM] AM Lab 01/13/19 05:11 Ordered MAGNESIUM [CHEM] AM Lab 01/10/19 05:11 Ordered MAGNESIUM [CHEM] AM Lab 01/11/19 05:11 Ordered MAGNESIUM [CHEM] AM Lab 01/12/19 05:11 Ordered MAGNESIUM [CHEM] AM Lab 01/13/19 05:11 Ordered Lactulose [Cephulac] Med 01/09/19 09:00 Active 20 gm PO BID Metoclopramide [Reglan] Med 01/09/19 00:37 Active 10 mg IVPUSH Q6H PRN Ondansetron [Zofran] Med 01/09/19 01:40 Active 4 mg IVPUSH Q4H PRN Remove Patch Med 01/12/19 00:30 Once 1 ea TRDERM ONETIME ONE Sodium Chloride 0.9% [Normal Saline] 1,000 ml Med 01/09/19 00:45 Active IV ASDIRECTED Spironolactone [Aldactone] Med 01/09/19 09:00 Active 25 mg PO BID oxyCODONE Med 01/09/19 11:23 Active 5 mg PO Q6H PRN Resuscitation Status Routine Resus Stat 01/09/19 01:06 Ordered Medication Orders Sodium Chloride (Normal Saline) 1,000 mls @ 75 mls/hr IV ASDIRECTED [facility] Last Admin: 01/09/19 00:59 Dose: 75 mls/hr Lactulose (Cephulac) 20 gm PO BID [facility] Last Admin: 01/09/19 11:40 Dose: Metoclopramide HCl (Reglan) 10 mg IVPUSH Q6H PRN PRN Reason: Nausea Miscellaneous Information (Remove Patch) 1 ea TRDERM ONETIME ONE Stop: 01/12/19 00:31 Ondansetron HCl (Zofran) 4 mg IVPUSH Q4H PRN PRN Reason: Nausea Oxycodone HCl (Oxycodone) 5 mg PO Q6H PRN PRN Reason: Pain Last Admin: 01/09/19 11:51 Dose: 5 mg Spironolactone (Aldactone) 25 mg PO BID [facility] Last Admin: 01/09/19 10:50 Dose: 25 mg Assessment/Plan Comment:: Cirrhosis with ascites * Child Nayak score 11, class C: Placing her in a 1 year estimated mortality risk of 55%. * director social service consult. * Patient will need long-term follow-up with gastroenterology. Nausea and vomiting * Consult Dr. Nascimento in surgery to evaluate abnormal CT and possible paracentesis. * Ultrasound of the abdomen ordered. * patient's nausea and vomiting has mostly resolved here in the hospital. * Start clear liquid diet and advance as tolerated. hypomagnesemia and hypokalemia * Repeat magnesium and potassium after supplementation is normal. history of alcoholism * Follow with director social service.
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
[2019-01-09 17:31] VITALS: BP 122/54
--- NOTE | 2019-01-09 19:56 | CONS ---
CONSULTING PHYSICIAN: Doni Nascimento MD DATE OF CONSULTATION: 01/09/2019 REQUESTING PHYSICIAN: Dr. Jose Griffith. REASON FOR CONSULTATION: Question of spontaneous bacterial peritonitis versus biliary disease. HISTORY OF PRESENT ILLNESS: The patient is a 33-year-old female who was seen in the ED by Dr. Dickerson with a 1-month history of nausea and vomiting associated with abdominal pain. She said she vomits once a day, usually in the morning. It is often associated with what she describes as an anxiety attack. Sometimes she says she is in places such as [place], and she feels chest pain which is central, substernal, sharp in character. She gets short of breath. Her syndrome continues with abdominal pain followed by nausea and vomiting. She has had a 42-pound weight loss over the last 3 months. Her pain typically is in the lower abdomen across in a bandlike pattern. It is crampy in nature. She also reports having the sensation that her abdomen is more distended than usual. She said it has made it difficult for her to get out of the bathtub in the morning. She has a long history of severe alcohol abuse, though she admitted that she has not had any drink for about 2 months. She denies any shaking, chills, or fever. PRIOR MEDICAL HISTORY: Anxiety disorder, alcohol abuse, she had a self-inflicted injury to the left arm resulting in a tendon rupture. She also has a fracture of the left ankle, which was repaired. SOCIAL HISTORY: She is a former smoker. Former alcohol abuser. Denies illicit drugs other than cannabinoids. ALLERGIES: She has no allergies to medications. MEDICATIONS: She denies medications at home. PHYSICAL EXAMINATION: GENERAL: She is arousable, but somewhat somnolent and marginally cooperative. She appears probably 30 years older than her stated age of [age] years old. VITAL SIGNS: Temperature 97.9, pulse 85, respirations 16, blood pressure 114/39. HEAD AND NECK: Normocephalic, atraumatic. She is anicteric. LUNGS: Clear to auscultation bilaterally, though with diminished inspiratory effort. HEART: Regular rate and rhythm. No clicks, murmurs, or rubs. ABDOMEN: Soft. She has dull note to percussion. She has no guarding or rebound. She has mild generalized tenderness. I cannot appreciate a Denis sign. No hernias are present. No surgical scars are present. No hepatosplenomegaly. EXTREMITIES: No clubbing, cyanosis, or edema. NEUROLOGIC: Cranial nerves are grossly intact, nonfocal. PSYCHIATRIC: She has a flat affect and is a bit somnolent and marginal cooperative. LABORATORY DATA: I looked at her labs, she has a mild leukocytosis, microcytic hypochromic anemia consistent with alcohol abuse. Chemistries: Sodium 134, BUN is 5, BUN- creatinine ratio of 6.3, calcium 7.9, total bilirubin 3.7, AST 84, albumin is 1.3, albumin-globulin ratio 0.2. Urine is unremarkable. I have looked at her CT scan. She has a cirrhotic liver. Her gallbladder is marginally distended, but there is no evidence of stones or pericholecystic fluid. She does have some mild to moderate ascites. Multiple dilated portal vessels consistent with the portal hypertension and cirrhosis. Ultrasound shows the same. PLAN: She will need to be screened for esophageal varices. She also may benefit from a HIDA scan to rule out her gallbladder as a potential cause for her abdominal pain, though I think the yield will be fairly low since her clinical syndrome does not seem consistent. She can follow up in the [facility] for any further referrals. She wants to go home today. I do not think there are any good reasons to keep her. She does not have the criteria for spontaneous bacterial peritonitis to warrant a tap. My findings have been communicated with Dr. Griffith. MISAEL /[id number]
== END 2019-01-09 16:30 | disposition home or self-care (01) ==
LOC: JD.ED 20:35 → JD.MS 23:39
PROVIDERS: ADMIT Family Medicine; ATTEND Family Medicine
DX: E87.6 Hypokalemia (principal); E83.42 Hypomagnesemia; D68.9 Coagulation defect, unspecified; K70.31 Alcoholic cirrhosis of liver with ascites; F10.21 Alcohol dependence, in remission; N32.89 Other specified disorders of bladder; K21.9 Gastro-esophageal reflux disease without esophagitis; R11.2 Nausea with vomiting, unspecified; F32.9 Major depressive disorder, single episode, unspecified; Z87.891 Personal history of nicotine dependence; Z83.79 Family history of other diseases of the digestive system; Z79.899 Other long term (current) drug therapy
CPT/HCPCS: 36415; 74177; 76700; 80053; 81001; 82140; 82553; 82977; 83690; 83735; 83880; 84484; 85007; 85027; 85610; 85730; 86140; 86677; 86803; 93005; 96361; 96365; 96366; 96368; 96375; 99285; A9270; G0378; J1170; J2405; J2765; J3475; J3480; J7040; J7042; Q9967; 93010; 96374

== ENCOUNTER 2019-01-27 21:53 | Emergency (ER) | payer MEDICAID ==
[2019-01-27] MEDS ORDERED: Sodium Chloride 0.9% 10 ML Syringe FLUSH PRN (22:40)
--- NOTE | 2019-01-27 22:41 | EDM.PDOC ---
ED HPI GENERAL MEDICAL PROBLEM - General Chief Complaint: Gastrointestinal Problem Stated Complaint: BACK PAIN Time Seen by Provider: 01/27/19 22:38 Source of Information: Reports: Patient History Limitations: Reports: No Limitations - History of Present Illness INITIAL COMMENTS - FREE TEXT/NARRATIVE: 33-year-old female of [place] ancestry presents the ED with essentially right upper quadrant pain rating through to her back. Patient has been recently diagnosed with alcoholic cirrhosis of the liver stage III. She had a paracentesis done in [place] last week through the left upper quadrant. Apparently 2 L were removed. She feels slightly more short of breath. The pain is worsened when she is in the sitting position. It's better when she's lying down. He is very weak. States that her legs feel super heavy it is difficult even to step up into a bathtub. She had nausea and vomiting yesterday and again today and hasn't had much in the way of fluids. She is on lactulose syrup twice daily and stools are quite loose. She states she is short of breath on minimal exertion. Clinically she has scleral icterus. Apparently a liver biopsy has been done and confirmed stage III liver disease. Patient denies any recent alcohol use. She remains on Aldactone 25 mg once daily. She is also on thiamine and vitamin B supplements daily. She is also on iron 325 mg twice daily. Onset: Other (She has intermittent chronic pain due to cirrhosis the liver with known ascites.) Duration: Chronic, Other (Diagnosis of cirrhosis of liver made within the last 6 date weeks.) Location: Reports: Abdomen (Right upper quadrant abdominal pain rating through to her right) Quality: Reports: Ache, Pressure Severity: Moderate (7 out of 10) Improves with: Reports: Rest (Lying flat helps.) Worsens with: Reports: Other, Movement Context: Reports: Other (Known cirrhosis of the liver was ascites.). Denies: Activity (Sitting up makes it much worse), Exercise, Lifting, Sick Contact, Trauma Associated Symptoms: Reports: Loss of Appetite, Malaise, Nausea/Vomiting, Weakness (Particularly noted in her lower extremities. 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 (see below) (No recent changes to medications) Lower Back Pain Score (Numeric/FACES): 6 - Related Data Allergies Allergy/AdvReac Type Severity Reaction Status Date / Time No Known Allergies Allergy Verified 01/27/19 22:11 Home Meds: Home Meds Ferrous Sulfate 325 mg PO BID 01/27/19 [History] Folic Acid 1 tab PO DAILY 01/27/19 [History] Ibuprofen 800 mg PO Q6H PRN 01/27/19 [History] Lactulose 15 ml PO BID 01/27/19 [History] Pantoprazole [ProTONIX] 40 mg PO DAILY 01/27/19 [History] Sertraline [Zoloft] 50 mg PO DAILY 01/27/19 [History] Spironolactone [Aldactone] 25 mg PO DAILY 01/27/19 [History] Thiamine HCl [Vitamin B-1] 1 tab PO DAILY 01/27/19 [History] Furosemide 20 mg PO DAILY #30 tablet 01/28/19 [Rx] Spironolactone [Aldactone] 25 mg PO BID #60 tablet 01/28/19 [Rx] clonazePAM [Klonopin] 1 mg PO DAILY #21 tablet 01/28/19 [Rx] oxyCODONE HCl [Roxicodone] 5 mg PO Q6H PRN #20 tablet 01/28/19 [Rx] Past Medical History HEENT History: Reports: Impaired Vision Other HEENT History: Wears glasses Gastrointestinal History: Reports: Cirrhosis, GERD 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: Musculoskeletal History: Reports: Fracture Other Musculoskeletal History: Tendon repair in arm, ankle broken Neurological History: Reports: Migraines Psychiatric History: Reports: Depression Other Dermatologic History: ingrown hairs in armpits - Past Surgical History GI Surgical History: Reports: Abdominal paracentesis Neurological Surgical History: Reports: None Musculoskeletal Surgical History: Reports: None Dermatological Surgical History: Reports: Other (See Below) Social & Family History - Family History Family Medical History: Noncontributory - Tobacco Use Smoking Status *Q: Never Smoker - Caffeine Use Caffeine Use: Reports: Coffee - Recreational Drug Use Recreational Drug Use: Yes Recreational Drug Type: Reports: Other (see below) Other Recreational Drug Type: CBD - Living Situation & Occupation Living situation: Reports: Single Occupation: Unemployed Social History Comment: Her sister Jil within the last few days. The nose on /Saturday this week up in [place]. ED ROS GENERAL - Review of Systems Review Of Systems: See Below Constitutional: Reports: Malaise, Weakness, Fatigue, Decreased Appetite, Weight Loss. Denies: Fever, Chills HEENT: Reports: Other Respiratory: Reports: Shortness of Breath (Scleral icterus.) Cardiovascular: Reports: Dyspnea on Exertion, Lightheadedness (At times). Denies: Chest Pain ( Patient on exertion), Blood Pressure Problem, Claudication , Orthopnea Endocrine: Reports: Fatigue GI/Abdominal: Reports: Abdominal Pain (Mostly right upper quadrant in the distribution of the liver. Pain radiates through to her mid back.) : Reports: No Symptoms Musculoskeletal: Reports: Back Pain (Mid and right upper back pain infrascapular area) Skin: Reports: Bruising, Pruritis (Bruises very easily particularly lower extremities. Generalized pruritus somewhat improved compared to my last visit with her.) Neurological: Reports: Confusion, Weakness (Transient intermittent confusion take a both lower extremities.) Psychiatric: Reports: Other Hematologic/Lymphatic: Reports: No Symptoms (She is on medication for depression.) Immunologic: Reports: No Symptoms ED EXAM, GI/ABD - Physical Exam Exam: See Below Exam Limited By: No Limitations General Appearance: Alert, WD/WN, No Apparent Distress, Other (Marked scleral icterus evident.) Throat/Mouth: Other (Tongue is dry and coated.) Head: Atraumatic, Normocephalic Neck: Normal Inspection, Supple, Non-Tender, Full Range of Motion. No: Lymphadenopathy (L), Lymphadenopathy (R) Respiratory/Chest: No Respiratory Distress, Lungs Clear, Normal Breath Sounds, No Accessory Muscle Use, Chest Non-Tender Cardiovascular: Normal Peripheral Pulses, Regular Rate, Rhythm, No Edema, No Gallop, No Rub GI/Abdominal Exam: Normal Bowel Sounds, Guarding, Tender, Other (No fluid shift and no clinical evidence of significant distention of the abdomen to suggest significant ascites.). No: Rigid, Rebound Back Exam: Normal Inspection, Full Range of Motion, CVA Tenderness (R). No: CVA Tenderness (L) (Mild) Extremities: Normal Inspection, Normal Range of Motion, Non-Tender, Other (She is losing musculature i.e. atrophy of the lower extremities.). No: Pedal Edema Neurological: Alert, Oriented, CN II-XII Intact, Other (Does have some asterixis.) Psychiatric: Flat Affect Skin Exam: Warm (Unchanged from previous), Dry, Intact, Normal Color, No Rash Course - Vital Signs Last Recorded V/S: Last Vital Signs Temp 36.3 C 01/27/19 22:06 Pulse 112 H 01/28/19 00:35 Resp 20 01/28/19 00:35 BP 104/78 01/28/19 00:35 Pulse Ox 93 L 01/28/19 00:35 - Orders/Labs/Meds Orders: Active Orders 24 hr Category Date Time Status Peripheral IV Care [RC] . DIRECTED Care 01/27/19 22:40 Active Chest 1V Frontal [CR] Stat Exams 01/27/19 22:39 Taken Peripheral IV Insertion Adult [OM.PC] Stat Oth 01/27/19 22:40 Ordered Labs: Laboratory Tests 01/27/19 01/27/19 01/27/19 Range/Units 22:57 22:57 22:57 WBC 12.02 H (3.98-10.04) K/mm3 RBC 2.73 L (3.98-5.22) M/mm3 Hgb 9.3 L (11.2-15.7) gm/L Hct 28.2 L (34.1-44.9) % MCV 103.3 H (79.4-94.8) fl MCH 34.1 H (25.6-32.2) pg MCHC 33.0 (32.2-35.5) g/dl RDW Std Deviation 61.0 H (36.4-46.3) fL Plt Count 182 (182-369) K/mm3 MPV 8.8 L (9.4-12.3) fl Neutrophils % (Manual) 80 H (40-60) % Band Neutrophils % 1 (0-10) % Lymphocytes % (Manual) 16 L (20-40) % Atypical Lymphs % 0 % Monocytes % (Manual) 2 (2-10) % Eosinophils % (Manual) 1 (0.7-5.8) % Basophils % (Manual) 0 L (0.1-1.2) Toxic Granulation 1+ slight Platelet Estimate Adequate Plt Morphology Comment Normal Anisocytosis 2+ moderate Macrocytosis 2+ moderate Ovalocytes 2+ moderate RBC Morph Comment Not Reportable PT 23.5 H (9.5-12.1) SECONDS INR 2.19 APTT 43 H (24-31) SECONDS Sodium 135 L (136-145) mEq/L Potassium 3.3 L (3.5-5.1) mEq/L Chloride 103 (98-107) mEq/L Carbon Dioxide 22 (21-32) mEq/L Anion Gap 13.3 (5-15) BUN 8 (7-18) mg/dL Creatinine 1.3 H (0.55-1.02) mg/dL Est Cr Clr Drug Dosing 54.14 mL/min Estimated GFR (MDRD) 48 (>60) mL/min BUN/Creatinine Ratio 6.2 L (14-18) Glucose 137 H (74-106) mg/dL Calcium 8.2 L (8.5-10.1) mg/dL Magnesium (1.8-2.4) mg/dl Total Bilirubin 6.6 H (0.2-1.0) mg/dL GGT 63 H (5-55) U/L AST 127 H (15-37) U/L ALT 43 (14-59) U/L Alkaline Phosphatase 93 (46-116) U/L Ammonia (11-32) umol/L C-Reactive Protein 1.8 H* (<1.0) mg/dL Total Protein 8.9 H (6.4-8.2) g/dl Albumin 1.7 L (3.4-5.0) g/dl Globulin 7.2 gm/dL Albumin/Globulin Ratio 0.2 L (1-2) Lipase (73-393) U/L 01/27/19 01/27/19 01/27/19 Range/Units 22:57 22:57 22:57 WBC (3.98-10.04) K/mm3 RBC (3.98-5.22) M/mm3 Hgb (11.2-15.7) gm/L Hct (34.1-44.9) % MCV (79.4-94.8) fl MCH (25.6-32.2) pg MCHC (32.2-35.5) g/dl RDW Std Deviation (36.4-46.3) fL Plt Count (182-369) K/mm3 MPV (9.4-12.3) fl Neutrophils % (Manual) (40-60) % Band Neutrophils % (0-10) % Lymphocytes % (Manual) (20-40) % Atypical Lymphs % % Monocytes % (Manual) (2-10) % Eosinophils % (Manual) (0.7-5.8) % Basophils % (Manual) (0.1-1.2) Toxic Granulation Platelet Estimate Plt Morphology Comment Anisocytosis Macrocytosis Ovalocytes RBC Morph Comment PT (9.5-12.1) SECONDS INR APTT (24-31) SECONDS Sodium (136-145) mEq/L Potassium (3.5-5.1) mEq/L Chloride (98-107) mEq/L Carbon Dioxide (21-32) mEq/L Anion Gap (5-15) BUN (7-18) mg/dL Creatinine (0.55-1.02) mg/dL Est Cr Clr Drug Dosing mL/min Estimated GFR (MDRD) (>60) mL/min BUN/Creatinine Ratio (14-18) Glucose (74-106) mg/dL Calcium (8.5-10.1) mg/dL Magnesium 1.7 L (1.8-2.4) mg/dl Total Bilirubin (0.2-1.0) mg/dL GGT (5-55) U/L AST (15-37) U/L ALT (14-59) U/L Alkaline Phosphatase (46-116) U/L Ammonia 75 H (11-32) umol/L C-Reactive Protein (<1.0) mg/dL Total Protein (6.4-8.2) g/dl Albumin (3.4-5.0) g/dl Globulin gm/dL Albumin/Globulin Ratio (1-2) Lipase 151 (73-393) U/L Meds: Medications Discontinued Medications Generic Name Dose Route Start Last Admin Trade Name Carlyle PRN Reason Stop Dose Admin Clonazepam 1 mg 01/28/19 00:08 01/28/19 00:31 Klonopin PO 01/28/19 00:09 1 mg ONETIME ONE Administration Hydromorphone HCl 1 mg 01/27/19 23:14 01/27/19 23:26 Dilaudid IVPUSH 01/27/19 23:15 1 mg ONETIME ONE Administration Dextrose/Sodium Chloride 1,000 mls @ 150 mls/hr 01/27/19 23:30 01/27/19 23:27 Dextrose 5%-Normal Saline IV 150 mls/hr ASDIRECTED JOHN Administration Ondansetron HCl 4 mg 01/27/19 23:14 01/27/19 23:26 Zofran IVPUSH 01/27/19 23:15 4 mg ONETIME ONE Administration Sodium Chloride 10 ml 01/27/19 22:40 01/27/19 22:56 Saline Flush FLUSH 10 ml ASDIRECTED PRN Administration Keep Vein Open - Radiology Interpretation Free Text/Narrative:: 33-year-old female of [place] ancestry presents to the ED with bimalleolar right upper quadrant abdominal pain rating to to her back. Patient is known to have stage III cirrhosis of liver induced by alcoholism. She had paracentesis done in [place] last week she's not sure which day. She feels slightly more short of breath. She's had nausea and vomiting yesterday and today and hasn't had a good deal of fluids intake. Stools are loose 2-3 times daily with lactulose 20 g twice a day. She's also on Aldactone 25 mg daily. On my assessment lungs were clear. Vital signs are normal she is afebrile she does have tenderness in the right upper quadrant of the abdomen and epigastrium. Minimal guarding present. Clinically she does not have a great deal of ascites on board. Not in comparison test when I had seen her last. She primarily appears to be needing pain management. Given Dilaudid 1 mg IV and Zofran 4 mg IV. I will await for 15 minutes and then do a bedside ultrasound to assess the degree of ascites. Routine labs will be collected and a urinalysis. - Re-Assessments/Exams Free Text/Narrative Re-Assessment/Exam: 01/27/19 23:57 Labs reveal a white count of 12.02. Hemoglobin is down to 9.3 with hematocrit of 28.2. MCV is elevated at 103.3. Placed on 182,000. PT is 23.5 with an INR of 2.19. PTT is 43. I.e. October anticoagulated. Sodium 135 with a potassium of 3.3. Chloride 103 with a bicarbonate 22. Anion gap is 13.3. BUN is 8 with a creatinine of 1.3. Estimated GFR is 48. Glucose is 137. Calcium is 8.2. Total bilirubin is 6.6 with a GGT of 63. AST is 127 with an ALT of 43. Alk phosphatase is 93. Serum ammonia level is elevated at 75. C-reactive protein is 1.8. Total protein is 8.9 with albumin fraction of 1.7. Lipase 151. Therefore the patient could take a second dose of Aldactone daily to improve her diuresis as well as improve her serum potassium level. She'll discontinue the iron tablet because every time she takes it she has nausea and vomiting. Rectal advise starting a vitamin for 5 days time which has a lower dose of iron in it. She is under great deal of duress at this point time as she knows she has a limited time to live due to her disease process and her sister within the last few days. We'll start her on clonazepam 1 mg at bedtime daily. Roxicodone tablet 1 tablet every 6 hours as needed for pain relief. No further Tylenol use. Increase Aldactone to 25 mg twice a day and add Lasix 20 mg once daily to your treatment plan. Bedside ultrasound demonstrates moderate amount of ascites both in the pelvis and both paracolic gutters but not above the liver or the spleen. Departure - Departure Time of Disposition: 00:08 Disposition: Home, Self-Care 01 Condition: Serious Clinical Impression: Cirrhosis of liver not due to alcohol, Ascites due to alcoholic cirrhosis, Nausea and vomiting in adult, Adverse effects of medication, Hypokalemia Abdominal pain Qualifiers: Abdominal location: right upper quadrant Qualified Code(s): R10.11 - Right upper quadrant pain - Discharge Information *PRESCRIPTION DRUG MONITORING PROGRAM REVIEWED*: No *COPY OF PRESCRIPTION DRUG MONITORING REPORT IN PATIENT SKY: No Prescriptions: clonazePAM [Klonopin] 1 mg PO DAILY #21 tablet Furosemide 20 mg PO DAILY #30 tablet oxyCODONE HCl [Roxicodone] 5 mg PO Q6H PRN #20 tablet PRN Reason: Abdominal Pain Spironolactone [Aldactone] 25 mg PO BID #60 tablet Instructions: Alcoholic Liver Disease, Hypokalemia, Ascites, Opioid Pain Medicine Information, [id number] Referrals: PCP,None [Primary Care Provider] - Forms: ED Department Discharge Additional Instructions: Evaluation in the emergency room tonight in regards to abdominal pain primarily right upper quadrant and epigastrium radiating through to your back. Initiated recurrent nausea and vomiting likely secondary to use of iron tablets. This is considered an adverse effect not an allergy. Suggest stopping the iron supplements and purchasing a vitamin and start about 5 days' time once daily with food. Lab tests reveal that your serum potassium level was slightly low at 3.3 tonight with normal being 3.5 or higher. Therefore suggest increasing her Aldactone medication to 25 mg twice daily once in the morning and once around suppertime daily to help with fluid collection in the abdomen. Also added medication furosemide 20 mg once daily every morning to help with fluid collection in the abdomen as well. This will hopefully help prevent need for further paracentesis( needle removal of fluid from the abdomen). Also gave you a clonazepam 1 mg to be taken once daily at bedtime to help sleep and relieve anxiety in light of your sister's . Only take this once daily at bedtime and not with any pain medication. He is Roxicodone tablets 5 mg 1 every 6-8 hours as needed for pain relief during the daytime but not at bedtime. This has no Tylenol in it to make your liver sick. Continue all other medications other than the iron as previously prescribed. Follow-up with personal care physician within the next 10 days. - My Orders Last 24 Hours: My Active Orders 01/27/19 22:39 Chest 1V Frontal [CR] Stat 01/27/19 22:40 Peripheral IV Care [RC] . DIRECTED Peripheral IV Insertion Adult [OM.PC] Stat - Assessment/Plan Last 24 Hours: My Active Orders 01/27/19 22:39 Chest 1V Frontal [CR] Stat 01/27/19 22:40 Peripheral IV Care [RC] . DIRECTED Peripheral IV Insertion Adult [OM.PC] Stat
[2019-01-27] MEDS ORDERED: Ondansetron 4 MG/2 ML SDV IVPUSH ONE (23:14)
[2019-01-27] MEDS ORDERED: HYDROmorphone 1 MG/ML Syringe IVPUSH ONE (23:14)
[2019-01-27] MEDS ORDERED: Dextrose 5%-0.9% NaCl 1,000 ML IV SCH (23:30)
[2019-01-28] MEDS ORDERED: ClonazePAM 1 MG Tab PO ONE (00:08)
[2019-01-28 01:06] VITALS: BP 104/78
--- NOTE | 2019-01-28 07:04 | CR ---
Chest: Frontal view of the chest was obtained. Comparison: Prior chest x-ray of 09/19/16. Poor inspiratory study is noted. This causes some atelectasis within both lung bases. Mild parenchymal density is noted within the left base behind the heart and difficult to exclude minimal area of pneumonia. Lungs otherwise are clear. Heart size and mediastinum are normal. Bony structures are unremarkable. Impression: 1. Poor inspiratory effort causing atelectasis. Difficult to exclude left lower lung pneumonia if patient has infectious symptoms. Findings otherwise due to atelectasis. 2. Other portions of the frontal chest are unremarkable. Diagnostic code #3
== END 2019-01-28 00:35 | disposition home or self-care (01) ==
LOC: JD.ED 21:53
DX: K70.31 Alcoholic cirrhosis of liver with ascites (principal); R11.2 Nausea with vomiting, unspecified; T45.4X5A Adverse effect of iron and its compounds, initial encounter; K21.9 Gastro-esophageal reflux disease without esophagitis; F32.9 Major depressive disorder, single episode, unspecified; Z79.899 Other long term (current) drug therapy
CPT/HCPCS: 36415; 71045; 80053; 82140; 82977; 83690; 83735; 85007; 85027; 85610; 85730; 86140; 96361; 96374; 96375; 99284; A9270; J1170; J2405; J7042; 99285

== ENCOUNTER 2019-02-10 20:40 | Inpatient (IN) | payer MEDICAID ==
[2019-02-10] MEDS ORDERED: Sodium Chloride 0.9% 10 ML Syringe FLUSH PRN (22:01)
[2019-02-10] MEDS ORDERED: Sodium Chloride 0.9% 1,000 ML IV ONE (22:01)
[2019-02-11] MEDS ORDERED: Lactulose Soln 10 GM/15 ML 30 ML UD Cup PO ONE (00:12)
--- NOTE | 2019-02-11 00:34 | EDM.PDOC ---
ED HPI GENERAL MEDICAL PROBLEM - General Chief Complaint: Neurological Problem Stated Complaint: DIZZINESS Time Seen by Provider: 02/10/19 21:21 Source of Information: Reports: Patient History Limitations: Reports: No Limitations - History of Present Illness INITIAL COMMENTS - FREE TEXT/NARRATIVE: 33-year-old female is brought in by her family for confusion and dizziness. Patient has a history of cirrhosis. She's also been on lactulose but has not been taking this as prescribed. She is complaining of dizziness at all times stated yesterday. She states that she has a slight headache yesterday. She reports associated nausea and vomiting. No chest pain. Reports she has dyspnea on exertion. As stated patient has a past medical history of cirrhosis. She was hospital is in [place] 2 weeks ago. Sounds as if she had a paracentesis last in [place]. Lower Back Pain Score (Numeric/FACES): 5 - Related Data Allergies Allergy/AdvReac Type Severity Reaction Status Date / Time No Known Allergies Allergy Verified 02/10/19 22:52 Home Meds: Home Meds Folic Acid 1 tab PO DAILY 01/27/19 [History] Ibuprofen 800 mg PO Q6H PRN 01/27/19 [History] Lactulose 15 ml PO BID 01/27/19 [History] Pantoprazole [ProTONIX] 40 mg PO DAILY 01/27/19 [History] Sertraline [Zoloft] 50 mg PO DAILY 01/27/19 [History] Spironolactone [Aldactone] 25 mg PO DAILY 01/27/19 [History] Thiamine HCl [Vitamin B-1] 1 tab PO DAILY 01/27/19 [History] Furosemide 20 mg PO DAILY #30 tablet 01/28/19 [Rx] Spironolactone [Aldactone] 25 mg PO BID #60 tablet 01/28/19 [Rx] clonazePAM [Klonopin] 1 mg PO DAILY #21 tablet 01/28/19 [Rx] oxyCODONE HCl [Roxicodone] 5 mg PO Q6H PRN #20 tablet 01/28/19 [Rx] Past Medical History HEENT History: Reports: Impaired Vision Other HEENT History: Wears glasses Gastrointestinal History: Reports: Cirrhosis, GERD [employer] History: Reports: Musculoskeletal History: Reports: Fracture Other Musculoskeletal History: Tendon repair in arm, ankle broken Neurological History: Reports: Migraines Psychiatric History: Reports: Depression Other Dermatologic History: ingrown hairs in armpits - Past Surgical History GI Surgical History: Reports: Abdominal paracentesis Neurological Surgical History: Reports: None Musculoskeletal Surgical History: Reports: None Dermatological Surgical History: Reports: Other (See Below) Social & Family History - Family History Family Medical History: Noncontributory - Tobacco Use Smoking Status *Q: Never Smoker - Caffeine Use Caffeine Use: Reports: Coffee, Soda, Tea - Recreational Drug Use Recreational Drug Use: Yes Recreational Drug Type: Reports: Other (see below) Other Recreational Drug Type: CBD oil Recreational Drug Use Frequency: Not Used In Over 1 Month - Living Situation & Occupation Living situation: Reports: Single Occupation: Unemployed ED ROS GENERAL - Review of Systems Review Of Systems: See Below Cardiovascular: Reports: Dyspnea on Exertion. Denies: Chest Pain GI/Abdominal: Reports: Nausea, Vomiting Neurological: Reports: Dizziness, Headache ED EXAM, DIZZINESS - Physical Exam Exam: See Below Exam Limited By: No Limitations General Appearance: Alert, WD/WN, No Apparent Distress Eye Exam: Bilateral Eye: Normal Inspection (icterus bilaterally) Ears: Normal External Exam Nose: Normal Inspection Throat/Mouth: Normal Inspection, Normal Lips, Normal Voice, No Airway Compromise Respiratory/Chest: No Respiratory Distress, Lungs Clear, Normal Breath Sounds Cardiovascular: No Murmur, Tachycardia GI/Abdominal: Normal Bowel Sounds, Soft, Non-Tender, Distended (mild amount of ascites present) Neurological: Alert, Other (confused conversation) Psychiatric: Flat Affect Skin Exam: Jaundice Course - Vital Signs Last Recorded V/S: Last Vital Signs Temp 98.7 F 02/10/19 20:53 Pulse 121 H 02/10/19 20:53 Resp 18 02/10/19 20:53 BP 115/52 L 02/10/19 20:53 Pulse Ox 99 02/10/19 20:53 Orthostatic Blood Pressure [ 119/64 Standing] Orthostatic Blood Pressure [ 118/59 Sitting] Orthostatic Blood Pressure [ 110/44 Supine] - Orders/Labs/Meds Orders: Active Orders 24 hr Category Date Time Status Cardiac Monitoring [RC] . DIRECTED Care 02/10/19 22:01 Active Orthostatic Vital Signs [RC] ASDIRECTED Care 02/10/19 21:47 Active Peripheral IV Care [RC] . DIRECTED Care 02/10/19 22:01 Active Chest 1V Frontal [CR] Stat Exams 02/10/19 22:01 Taken Head wo Cont [CT] Stat Exams 02/10/19 22:01 Taken Sodium Chloride 0.9% [Saline Flush] Med 02/10/19 22:01 Active 10 ml FLUSH ASDIRECTED PRN Peripheral IV Insertion Adult [OM.PC] Routine Oth 02/10/19 22:01 Ordered Medication Orders Sodium Chloride (Saline Flush) 10 ml FLUSH ASDIRECTED PRN PRN Reason: Keep Vein Open Last Admin: 02/10/19 22:26 Dose: 10 ml Labs: Laboratory Tests 02/10/19 02/10/19 02/10/19 Range/Units 22:20 22:20 22:20 WBC 12.94 H (3.98-10.04) K/mm3 RBC 2.93 L (3.98-5.22) M/mm3 Hgb 9.8 L (11.2-15.7) gm/L Hct 29.5 L (34.1-44.9) % MCV 100.7 H (79.4-94.8) fl MCH 33.4 H (25.6-32.2) pg MCHC 33.2 (32.2-35.5) g/dl RDW Std Deviation 56.7 H (36.4-46.3) fL Plt Count 168 L (182-369) K/mm3 MPV 8.3 L (9.4-12.3) fl Neutrophils % (Manual) 85 H (40-60) % Band Neutrophils % 0 (0-10) % Lymphocytes % (Manual) 9 L (20-40) % Atypical Lymphs % 0 % Monocytes % (Manual) 5 (2-10) % Eosinophils % (Manual) 0 L (0.7-5.8) % Basophils % (Manual) 1 (0.1-1.2) Toxic Granulation 1+ slight Platelet Estimate Decreased Plt Morphology Comment Normal Anisocytosis 2+ moderate Macrocytosis 2+ moderate Target Cells 1+ slight Ovalocytes 2+ moderate RBC Morph Comment Not Reportable PT 24.0 H (9.5-12.1) SECONDS INR 2.24 APTT 43 H (24-31) SECONDS Sodium 129 L (136-145) mEq/L Potassium 3.9 (3.5-5.1) mEq/L Chloride 98 (98-107) mEq/L Carbon Dioxide 23 (21-32) mEq/L Anion Gap 11.9 (5-15) BUN 11 (7-18) mg/dL Creatinine 1.0 (0.55-1.02) mg/dL Est Cr Clr Drug Dosing 70.39 mL/min Estimated GFR (MDRD) > 60 (>60) mL/min BUN/Creatinine Ratio 11.0 L (14-18) Glucose 121 H (74-106) mg/dL Calcium 8.5 (8.5-10.1) mg/dL Magnesium (1.8-2.4) mg/dl Total Bilirubin 7.6 H (0.2-1.0) mg/dL AST 137 H (15-37) U/L ALT 81 H (14-59) U/L Alkaline Phosphatase 84 (46-116) U/L Ammonia (11-32) umol/L C-Reactive Protein 2.6 H* (<1.0) mg/dL Total Protein 8.9 H (6.4-8.2) g/dl Albumin 1.7 L (3.4-5.0) g/dl Globulin 7.2 gm/dL Albumin/Globulin Ratio 0.2 L (1-2) 02/10/19 02/10/19 Range/Units 22:20 22:20 WBC (3.98-10.04) K/mm3 RBC (3.98-5.22) M/mm3 Hgb (11.2-15.7) gm/L Hct (34.1-44.9) % MCV (79.4-94.8) fl MCH (25.6-32.2) pg MCHC (32.2-35.5) g/dl RDW Std Deviation (36.4-46.3) fL Plt Count (182-369) K/mm3 MPV (9.4-12.3) fl Neutrophils % (Manual) (40-60) % Band Neutrophils % (0-10) % Lymphocytes % (Manual) (20-40) % Atypical Lymphs % % Monocytes % (Manual) (2-10) % Eosinophils % (Manual) (0.7-5.8) % Basophils % (Manual) (0.1-1.2) Toxic Granulation Platelet Estimate Plt Morphology Comment Anisocytosis Macrocytosis Target Cells Ovalocytes RBC Morph Comment PT (9.5-12.1) SECONDS INR APTT (24-31) SECONDS Sodium (136-145) mEq/L Potassium (3.5-5.1) mEq/L Chloride (98-107) mEq/L Carbon Dioxide (21-32) mEq/L Anion Gap (5-15) BUN (7-18) mg/dL Creatinine (0.55-1.02) mg/dL Est Cr Clr Drug Dosing mL/min Estimated GFR (MDRD) (>60) mL/min BUN/Creatinine Ratio (14-18) Glucose (74-106) mg/dL Calcium (8.5-10.1) mg/dL Magnesium 1.6 L (1.8-2.4) mg/dl Total Bilirubin (0.2-1.0) mg/dL AST (15-37) U/L ALT (14-59) U/L Alkaline Phosphatase (46-116) U/L Ammonia 69 H (11-32) umol/L C-Reactive Protein (<1.0) mg/dL Total Protein (6.4-8.2) g/dl Albumin (3.4-5.0) g/dl Globulin gm/dL Albumin/Globulin Ratio (1-2) Meds: Medications Generic Name Dose Route Start Last Admin Trade Name Freq PRN Reason Stop Dose Admin Sodium Chloride 10 ml 02/10/19 22:01 02/10/19 22:26 Saline Flush FLUSH 10 ml ASDIRECTED PRN Administration Keep Vein Open Discontinued Medications Generic Name Dose Route Start Last Admin Trade Name Freq PRN Reason Stop Dose Admin Sodium Chloride 1,000 mls @ 500 mls/hr 02/10/19 22:01 02/10/19 22:26 Normal Saline IV 02/11/19 00:00 500 mls/hr ONETIME ONE Administration Lactulose 20 gm 02/11/19 00:12 02/11/19 00:18 Cephulac PO 02/11/19 00:13 20 gm ONETIME ONE Administration - Radiology Interpretation Free Text/Narrative:: chest x-ray shows no acute intrathoracic process.Unchanged from chest x-ray done last month. Head CT pervrad: shows no acute intracranial pathology. - Re-Assessments/Exams Free Text/Narrative Re-Assessment/Exam: 02/11/19 00:07 reviewed the labs and imaging with the patient. Patient's issues home by herself. She is not reliable to take her medications. We'll admit her for her elevated pneumonia level. case was discussed with Dr. Blanton who agrees to the admission. Departure - Departure Time of Disposition: 00:56 Disposition: Admitted As Inpatient 68 Condition: Serious Clinical Impression: Hypomagnesemia, Cirrhosis of liver not due to alcohol, Hepatic encephalopathy Cirrhosis of liver with ascites Qualifiers: Hepatic cirrhosis type: alcoholic cirrhosis Qualified Code(s): K70.31 - Alcoholic cirrhosis of liver with ascites - Discharge Information *PRESCRIPTION DRUG MONITORING PROGRAM REVIEWED*: No *COPY OF PRESCRIPTION DRUG MONITORING REPORT IN PATIENT SKY: No - My Orders Last 24 Hours: My Active Orders 02/10/19 21:47 Orthostatic Vital Signs [RC] ASDIRECTED 02/10/19 22:01 Cardiac Monitoring [RC] . DIRECTED Peripheral IV Care [RC] . DIRECTED Chest 1V Frontal [CR] Stat Head wo Cont [CT] Stat Sodium Chloride 0.9% [Saline Flush] 10 ml FLUSH ASDIRECTED PRN Peripheral IV Insertion Adult [OM.PC] Routine - Assessment/Plan Last 24 Hours: My Active Orders 02/10/19 21:47 Orthostatic Vital Signs [RC] ASDIRECTED 02/10/19 22:01 Cardiac Monitoring [RC] . DIRECTED Peripheral IV Care [RC] . DIRECTED Chest 1V Frontal [CR] Stat Head wo Cont [CT] Stat Sodium Chloride 0.9% [Saline Flush] 10 ml FLUSH ASDIRECTED PRN Peripheral IV Insertion Adult [OM.PC] Routine
[2019-02-11] MEDS: Ondansetron 4 MG/2 ML SDV IVPUSH PRN ×3 (01:00→20:48)
[2019-02-11] MEDS: HYDROmorphone 0.5 MG/0.5 ML Syringe IVPUSH PRN (01:24)
[2019-02-11] MEDS: Sodium Chloride 0.9% 1,000 ML IV SCH ×2 (01:28→14:22)
--- NOTE | 2019-02-11 07:32 | CR ---
Chest: Portable view of the chest was obtained. Comparison: Prior chest x-ray of 01/27/19. Thick linear densities are noted within the right lung base. These have slightly changed in appearance from prior exam. Right upper and left lung are clear. Heart size and mediastinum are normal. Bony structures are grossly intact. Impression: 1. Continuing thick linear densities within the right lung base. Differential as described previous being persisting atelectasis versus pneumonia. Diagnostic code #3
[2019-02-11] MEDS: Lactulose Soln 10 GM/15 ML 30 ML UD Cup PO SCH ×3 (08:03→20:30)
--- NOTE | 2019-02-11 08:05 | CT ---
Head CT Technique: Multiple axial sections through the brain were obtained. Intravenous contrast was not utilized. Comparison: No prior intracranial imaging is available. Findings: Ventricles along with basal cisterns and sulci over the convexities are mildly prominent. No abnormal parenchymal densities are seen. No evidence of intracranial hemorrhage. No midline shift or mass effect is seen. Visualized paranasal sinuses show nothing acute. Visualized mastoid sinuses also show nothing acute. No acute calvarial abnormality is appreciated. Impression: 1. Slightly more prominent atrophy than expected for a patient of this age. This can be seen with previous trauma, drug abuse as well as some types of medication. 2. Nothing acute is otherwise seen on noncontrast head CT study. Diagnostic code #2 I agree with preliminary report from [facility], finalized on 02/11/19, 12:20 AM Central Time, code #2
[2019-02-11] MEDS ORDERED: Magnesium Sulfate/Water 4 GM in Premix Bag 1 BAG IV ONE (09:45)
--- NOTE | 2019-02-11 11:14 | PCM.HP ---
H&P History of Present Illness - General Date of Service: 02/11/19 Admit Problem/Dx: Admission Diagnosis/Problem Admission Diagnosis/Problem Hepatic encephalopathy - History of Present Illness Initial Comments - Free Text/Narative: 33-year-old female with known cirrhosis with ascites came to the emergency room last night complaining of her head spinning for 1-2 days. She states for the last week and a half she has not been taking her lactulose because she does not like the way it tastes. She was discharged from [facility] 2 weeks ago after getting a 2 L paracentesis. She denies any alcohol use over the last 3-4 months. She just recently. Her sister from end-stage liver disease. She does complain of some dyspnea on exertion and abdominal pain with activity but no pain at rest. She has not had a bowel movement in a couple days. Patient also complains of being thirsty and she cannot get enough to drink. When patient arrived on the floor nursing noted that when she had a bowel movement prior to the bowel movement she had maurice blood in her urine. Lower Back Pain Score (Numeric/FACES): 5 - Related Data Allergies/Adverse Reactions: Allergies Allergy/AdvReac Type Severity Reaction Status Date / Time No Known Allergies Allergy Verified 02/10/19 22:52 Home Medications: Home Meds Folic Acid 1 tab PO DAILY 01/27/19 [History] Ibuprofen 800 mg PO Q6H PRN 01/27/19 [History] Lactulose 15 ml PO BID 01/27/19 [History] Pantoprazole [ProTONIX] 40 mg PO DAILY 01/27/19 [History] Sertraline [Zoloft] 50 mg PO DAILY 01/27/19 [History] Thiamine HCl [Vitamin B-1] 1 tab PO DAILY 01/27/19 [History] Furosemide 20 mg PO DAILY #30 tablet 01/28/19 [Rx] Spironolactone [Aldactone] 25 mg PO BID #60 tablet 01/28/19 [Rx] clonazePAM [Klonopin] 1 mg PO DAILY #21 tablet 01/28/19 [Rx] oxyCODONE HCl [Roxicodone] 5 mg PO Q6H PRN #20 tablet 01/28/19 [Rx] Past Medical History HEENT History: Reports: Impaired Vision Other HEENT History: Wears glasses Gastrointestinal History: Reports: Cirrhosis, GERD [employer] History: Reports: Musculoskeletal History: Reports: Fracture Other Musculoskeletal History: Tendon repair in arm, ankle broken Neurological History: Reports: Migraines Psychiatric History: Reports: Depression Other Dermatologic History: ingrown hairs in armpits - Past Surgical History GI Surgical History: Reports: Abdominal paracentesis Neurological Surgical History: Reports: None Musculoskeletal Surgical History: Reports: None Dermatological Surgical History: Reports: Other (See Below) Social & Family History - Family History Family Medical History: Noncontributory - Tobacco Use Smoking Status *Q: Never Smoker Years of Tobacco use: 2 Packs/Tins Daily: 0.5 Used Tobacco, but Quit: Yes Month/Year Tobacco Last Used: 2011 Second Hand Smoke Exposure: No - Caffeine Use Caffeine Use: Reports: Coffee, Soda, Tea - Alcohol Use Date of Last Drink: 09/19/18 - Recreational Drug Use Recreational Drug Use: Yes Recreational Drug Type: Reports: Other (see below) Other Recreational Drug Type: CBD oil Recreational Drug Use Frequency: Not Used In Over 1 Month - Living Situation & Occupation Living situation: Reports: Single Occupation: Unemployed H&P Review of Systems - Review of Systems: Review Of Systems: ROS reveals no pertinent complaints other than HPI. Exam - Exam Exam: See Below - Vital Signs Vital Signs: Last Vital Signs Temp 98.1 F 02/11/19 08:01 Pulse 97 02/11/19 08:01 Resp 14 02/11/19 08:01 BP 110/54 L 02/11/19 08:01 Pulse Ox 98 02/11/19 08:01 Orthostatic Blood Pressure [ 119/64 Standing] Orthostatic Blood Pressure [ 118/59 Sitting] Orthostatic Blood Pressure [ 110/44 Supine] Weight: 155 lb 11.2 oz - Exam General: Alert, Oriented HEENT: Conjunctiva Clear, Mucosa Moist & Dortches Neck: Supple, Trachea Midline Lungs: Clear to Auscultation, Normal Respiratory Effort Cardiovascular: Regular Rate, Regular Rhythm GI/Abdominal Exam: Normal Bowel Sounds, Distended, Tender (Moderate right upper stomach quadrant tenderness without guarding or rebound) Extremities: Normal Inspection, Non-Tender, Pedal Edema (1-2+ pitting edema) Skin: Warm, Dry, Intact Neuro Extensive - Mental Status: Alert, Normal Mood/Affect, Normal Cognition, Disorientation to Time. No: Disorientation to Person, Disorientation to Place Neuro Extensive - Motor, Sensory, Reflexes: CN II-XII Intact Psychiatric: Alert, Normal Affect, Normal Mood - Patient Data Lab Results Last 24 hrs: Laboratory Results - last 24 hr 02/10/19 02/10/19 02/10/19 Range/Units 22:20 22:20 22:20 WBC 12.94 H (3.98-10.04) K/mm3 RBC 2.93 L (3.98-5.22) M/mm3 Hgb 9.8 L (11.2-15.7) gm/L Hct 29.5 L (34.1-44.9) % MCV 100.7 H (79.4-94.8) fl MCH 33.4 H (25.6-32.2) pg MCHC 33.2 (32.2-35.5) g/dl RDW Std Deviation 56.7 H (36.4-46.3) fL Plt Count 168 L (182-369) K/mm3 MPV 8.3 L (9.4-12.3) fl Neutrophils % (Manual) 85 H (40-60) % Band Neutrophils % 0 (0-10) % Lymphocytes % (Manual) 9 L (20-40) % Atypical Lymphs % 0 % Monocytes % (Manual) 5 (2-10) % Eosinophils % (Manual) 0 L (0.7-5.8) % Basophils % (Manual) 1 (0.1-1.2) Toxic Granulation 1+ slight Platelet Estimate Decreased Plt Morphology Comment Normal Anisocytosis 2+ moderate Macrocytosis 2+ moderate Target Cells 1+ slight Ovalocytes 2+ moderate RBC Morph Comment Not Reportable PT 24.0 H (9.5-12.1) SECONDS INR 2.24 APTT 43 H (24-31) SECONDS Sodium 129 L (136-145) mEq/L Potassium 3.9 (3.5-5.1) mEq/L Chloride 98 (98-107) mEq/L Carbon Dioxide 23 (21-32) mEq/L Anion Gap 11.9 (5-15) BUN 11 (7-18) mg/dL Creatinine 1.0 (0.55-1.02) mg/dL Est Cr Clr Drug Dosing 70.39 mL/min Estimated GFR (MDRD) > 60 (>60) mL/min BUN/Creatinine Ratio 11.0 L (14-18) Glucose 121 H (74-106) mg/dL Calcium 8.5 (8.5-10.1) mg/dL Magnesium (1.8-2.4) mg/dl Total Bilirubin 7.6 H (0.2-1.0) mg/dL AST 137 H (15-37) U/L ALT 81 H (14-59) U/L Alkaline Phosphatase 84 (46-116) U/L Ammonia (11-32) umol/L C-Reactive Protein 2.6 H* (<1.0) mg/dL Total Protein 8.9 H (6.4-8.2) g/dl Albumin 1.7 L (3.4-5.0) g/dl Globulin 7.2 gm/dL Albumin/Globulin Ratio 0.2 L (1-2) 02/10/19 02/10/19 Range/Units 22:20 22:20 WBC (3.98-10.04) K/mm3 RBC (3.98-5.22) M/mm3 Hgb (11.2-15.7) gm/L Hct (34.1-44.9) % MCV (79.4-94.8) fl MCH (25.6-32.2) pg MCHC (32.2-35.5) g/dl RDW Std Deviation (36.4-46.3) fL Plt Count (182-369) K/mm3 MPV (9.4-12.3) fl Neutrophils % (Manual) (40-60) % Band Neutrophils % (0-10) % Lymphocytes % (Manual) (20-40) % Atypical Lymphs % % Monocytes % (Manual) (2-10) % Eosinophils % (Manual) (0.7-5.8) % Basophils % (Manual) (0.1-1.2) Toxic Granulation Platelet Estimate Plt Morphology Comment Anisocytosis Macrocytosis Target Cells Ovalocytes RBC Morph Comment PT (9.5-12.1) SECONDS INR APTT (24-31) SECONDS Sodium (136-145) mEq/L Potassium (3.5-5.1) mEq/L Chloride (98-107) mEq/L Carbon Dioxide (21-32) mEq/L Anion Gap (5-15) BUN (7-18) mg/dL Creatinine (0.55-1.02) mg/dL Est Cr Clr Drug Dosing mL/min Estimated GFR (MDRD) (>60) mL/min BUN/Creatinine Ratio (14-18) Glucose (74-106) mg/dL Calcium (8.5-10.1) mg/dL Magnesium 1.6 L (1.8-2.4) mg/dl Total Bilirubin (0.2-1.0) mg/dL AST (15-37) U/L ALT (14-59) U/L Alkaline Phosphatase (46-116) U/L Ammonia 69 H (11-32) umol/L C-Reactive Protein (<1.0) mg/dL Total Protein (6.4-8.2) g/dl Albumin (3.4-5.0) g/dl Globulin gm/dL Albumin/Globulin Ratio (1-2) Result Diagrams: 02/10/19 22:20 02/10/19 22:20 - Problem List (1) Cirrhosis of liver with ascites SNOMED Code(s): 18728187 ICD Code: K74.60 - UNSPECIFIED CIRRHOSIS OF LIVER; R18.8 - OTHER ASCITES Status: Acute Current Visit: Yes Qualifiers: Hepatic cirrhosis type: alcoholic cirrhosis Qualified Code(s): K70.31 - Alcoholic cirrhosis of liver with ascites (2) Hepatic encephalopathy SNOMED Code(s): 67636348 ICD Code: K72.90 - HEPATIC FAILURE, UNSPECIFIED WITHOUT COMA Status: Acute Current Visit: Yes (3) Hyponatremia SNOMED Code(s): 82266874 ICD Code: E87.1 - HYPO-OSMOLALITY AND HYPONATREMIA Status: Acute Current Visit: Yes Problem List Initiated/Reviewed/Updated: Yes Orders Last 24hrs: Active Orders 24 hr Category Date Time Status Patient Status [ADT] Routine ADT 02/11/19 00:36 Active Bedrest Bathroom Privileges [RC] ASDIRECTED Care 02/11/19 00:53 Active Cardiac Monitoring [RC] . DIRECTED Care 02/10/19 22:01 Active Incentive Spirometry [RT Incentive Spirometry] [RC] Care 02/11/19 10:23 Active ASDIRECTED Protein Restricted Diet [DIET] Diet 02/11/19 Lunch Active CBC WITH AUTO DIFF [HEME] AM Lab 02/12/19 05:11 Ordered CMP [COMPREHENSIVE METABOLIC PN,CMP] [CHEM] AM Lab 02/12/19 05:11 Ordered MAGNESIUM [CHEM] AM Lab 02/12/19 05:11 Ordered ClonazePAM [KlonoPIN] Med 02/12/19 21:00 Active 1 mg PO DAILY Folic Acid Med 02/11/19 09:30 Active 1 mg PO DAILY Furosemide [Lasix] Med 02/11/19 09:30 Active 20 mg PO DAILY HYDROmorphone [Dilaudid] Med 02/11/19 00:54 Active 0.5 mg IVPUSH Q2H PRN Lactulose [Cephulac] Med 02/11/19 09:00 Active 30 gm PO TID Magnesium Sulfate/Water [Magnesium Sulfate in Water Med 02/11/19 09:45 Active Premix] 4 gm Premix Bag 1 bag IV ONETIME Ondansetron [Zofran] Med 02/11/19 00:50 Active 4 mg IVPUSH Q4H PRN Pantoprazole [ProTONIX] Med 02/11/19 09:30 Active 40 mg PO DAILY Sertraline [Zoloft] Med 02/12/19 09:00 Active 50 mg PO DAILY Sodium Chloride 0.9% [Normal Saline] 1,000 ml Med 02/11/19 01:00 Active IV ASDIRECTED Sodium Chloride 0.9% [Saline Flush] Med 02/10/19 22:01 Active 10 ml FLUSH ASDIRECTED PRN Spironolactone [Aldactone] Med 02/11/19 09:30 Active 25 mg PO BID Thiamine [Vitamin B-1] Med 02/12/19 09:00 Active 100 mg PO DAILY oxyCODONE Med 02/11/19 09:29 Active 5 mg PO Q6H PRN Peripheral IV Insertion Adult [OM.PC] Routine Oth 02/10/19 22:01 Ordered Code Status [Resuscitation Status] Routine Resus Stat 02/11/19 00:57 Ordered Medication Orders Clonazepam (Klonopin) 1 mg PO DAILY JOHN Folic Acid (Folic Acid) 1 mg PO DAILY JOHN Furosemide (Lasix) 20 mg PO DAILY JOHN Hydromorphone HCl (Dilaudid) 0.5 mg IVPUSH Q2H PRN PRN Reason: Pain Last Admin: 02/11/19 01:24 Dose: 0.5 mg Sodium Chloride (Normal Saline) 1,000 mls @ 75 mls/hr IV ASDIRECTED JOHN Last Admin: 02/11/19 01:28 Dose: 75 mls/hr Magnesium Sulfate 4 gm/ Premix 50 mls @ 12.5 mls/hr IV ONETIME ONE Stop: 02/11/19 13:44 Last Admin: 02/11/19 10:22 Dose: 12.5 mls/hr Lactulose (Cephulac) 30 gm PO TID [facility] Last Admin: 02/11/19 08:03 Dose: 30 gm Ondansetron HCl (Zofran) 4 mg IVPUSH Q4H PRN PRN Reason: Nausea/Vomiting Last Admin: 02/11/19 01:00 Dose: 4 mg Oxycodone HCl (Oxycodone) 5 mg PO Q6H PRN PRN Reason: Abdominal Pain Pantoprazole Sodium (Protonix) 40 mg PO DAILY [facility] Sertraline HCl (Zoloft) 50 mg PO DAILY [facility] Sodium Chloride (Saline Flush) 10 ml FLUSH ASDIRECTED PRN PRN Reason: Keep Vein Open Last Admin: 02/10/19 22:26 Dose: 10 ml Spironolactone (Aldactone) 25 mg PO BID [facility] Thiamine HCl (Vitamin B-1) 100 mg PO DAILY [facility] Assessment/Plan Comment:: Assessment * 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
[2019-02-11] MEDS: Folic Acid 1 MG Tab PO SCH (11:15)
[2019-02-11] MEDS: Furosemide 20 MG Tab PO SCH (11:15)
[2019-02-11] MEDS: Pantoprazole 40 MG Tab.CR PO SCH (11:16)
[2019-02-11] MEDS: Spironolactone 25 MG Tab PO SCH ×2 (11:16→20:30)
[2019-02-11] MEDS: oxyCODONE 5 MG Tab PO PRN (18:48)
[2019-02-11] MEDS: ClonazePAM 1 MG Tab PO SCH (20:48)
[2019-02-12] MEDS: Sodium Chloride 0.9% 1,000 ML IV SCH (04:00)
[2019-02-12] MEDS: oxyCODONE 5 MG Tab PO PRN (04:12)
[2019-02-12] MEDS ORDERED: Potassium Chloride 10 MEQ/5 ML SDV IV SCH (08:00)
[2019-02-12] MEDS: Potassium Chloride 10 MEQ in Premix Bag 1 BAG IV SCH ×4 (08:25→13:23)
[2019-02-12] MEDS ORDERED: diphenhydrAMINE 50 MG/ML SDV IV ONE (08:28)
[2019-02-12] MEDS: Rifaximin 550 MG Tab PO SCH ×2 (08:28→21:35)
[2019-02-12] MEDS: Folic Acid 1 MG Tab PO SCH (08:29)
[2019-02-12] MEDS: Furosemide 20 MG Tab PO SCH (08:29)
[2019-02-12] MEDS: Sertraline 50 MG Tab PO SCH (08:29)
[2019-02-12] MEDS: Pantoprazole 40 MG Tab.CR PO SCH (08:30)
[2019-02-12] MEDS: Spironolactone 25 MG Tab PO SCH ×2 (08:30→21:35)
[2019-02-12] MEDS: ClonazePAM 1 MG Tab PO SCH ×2 (08:30→23:34)
[2019-02-12] MEDS: Thiamine 100 MG Tab PO SCH (08:30)
--- NOTE | 2019-02-12 09:10 | PCM.PN ---
- General Info Date of Service: 02/12/19 Admission Dx/Problem (Free Text): Admission Diagnosis/Problem Admission Diagnosis/Problem Hepatic encephalopathy Subjective Update: February 12, 2019 Patient had 9 bowel movements over the last 24 hours. Patient continues to be confused, but now she has hypokalemia and worsening anemia. Patient's hemoglobin dropped from 9.8-7.8 and could be part of the reason for her increased ammonia and hepatic encephalopathy. Patient is on her menstrual cycle and nursing reported blood yesterday. Patient denies any significant abdominal pain. She also spent much of yesterday mildly tachycardic in the 100s to 110s. Functional Status: Reports: Pain Controlled - Review of Systems General: Reports: Fatigue HEENT: Reports: No Symptoms Pulmonary: Denies: Shortness of Breath, Cough Cardiovascular: Denies: Chest Pain, Palpitations - Patient Data Vitals - Most Recent: Last Vital Signs Temp 98.6 F 02/12/19 08:20 Pulse 115 H 02/12/19 08:20 Resp 12 02/12/19 08:20 BP 110/59 L 02/12/19 08:20 Pulse Ox 97 02/12/19 08:20 Orthostatic Blood Pressure [ 119/64 Standing] Orthostatic Blood Pressure [ 118/59 Sitting] Orthostatic Blood Pressure [ 110/44 Supine] Weight - Most Recent: 158 lb 11.2 oz I&O - Last 24 Hours: Intake & Output 02/11/19 02/12/19 02/12/19 22:59 06:59 14:59 Intake Total 2626 1550 Output Total 325 Balance 2301 1550 Lab Results Last 24 Hours: Laboratory Results - last 24 hr 02/12/19 02/12/19 02/12/19 Range/Units 05:20 05:20 05:20 WBC 9.97 (3.98-10.04) K/mm3 RBC 2.34 L (3.98-5.22) M/mm3 Hgb 7.8 L D (11.2-15.7) gm/L Hct 23.7 L (34.1-44.9) % MCV 101.3 H (79.4-94.8) fl MCH 33.3 H (25.6-32.2) pg MCHC 32.9 (32.2-35.5) g/dl RDW Std Deviation 56.6 H (36.4-46.3) fL Plt Count 124 L (182-369) K/mm3 MPV 8.3 L (9.4-12.3) fl Neut % (Auto) 63.5 (34.0-71.1) % Lymph % (Auto) 22.8 (19.3-51.7) % [place] % (Auto) 10.5 (4.7-12.5) % Eos % (Auto) 2.9 (0.7-5.8) Baso % (Auto) 0.2 (0.1-1.2) % Neut # (Auto) 6.33 H (1.56-6.13) K/mm3 Lymph # (Auto) 2.27 (1.18-3.74) K/mm3 [place] # (Auto) 1.05 H (0.24-0.36) K/mm3 Eos # (Auto) 0.29 (0.04-0.36) K/mm3 Baso # (Auto) 0.02 (0.01-0.08) K/mm3 Manual Slide Review Abnormal smear Sodium 132 L (136-145) mEq/L Potassium 2.8 L (3.5-5.1) mEq/L Chloride 103 (98-107) mEq/L Carbon Dioxide 19 L (21-32) mEq/L Anion Gap 12.8 (5-15) BUN 6 L (7-18) mg/dL Creatinine 0.9 (0.55-1.02) mg/dL Est Cr Clr Drug Dosing 78.78 mL/min Estimated GFR (MDRD) > 60 (>60) mL/min BUN/Creatinine Ratio 6.7 L (14-18) Glucose 98 (74-106) mg/dL Lactic Acid 2.3 H (0.4-2.0) mmol/L Calcium 7.7 L (8.5-10.1) mg/dL Magnesium 5.6 H (1.8-2.4) mg/dl Total Bilirubin 4.8 H (0.2-1.0) mg/dL AST 109 H (15-37) U/L ALT 66 H (14-59) U/L Alkaline Phosphatase 69 (46-116) U/L C-Reactive Protein (<1.0) mg/dL Total Protein 7.2 (6.4-8.2) g/dl Albumin 1.3 L (3.4-5.0) g/dl Globulin 5.9 gm/dL Albumin/Globulin Ratio 0.2 L (1-2) 02/12/19 Range/Units 05:20 WBC (3.98-10.04) K/mm3 RBC (3.98-5.22) M/mm3 Hgb (11.2-15.7) gm/L Hct (34.1-44.9) % MCV (79.4-94.8) fl MCH (25.6-32.2) pg MCHC (32.2-35.5) g/dl RDW Std Deviation (36.4-46.3) fL Plt Count (182-369) K/mm3 MPV (9.4-12.3) fl Neut % (Auto) (34.0-71.1) % Lymph % (Auto) (19.3-51.7) % [place] % (Auto) (4.7-12.5) % Eos % (Auto) (0.7-5.8) Baso % (Auto) (0.1-1.2) % Neut # (Auto) (1.56-6.13) K/mm3 Lymph # (Auto) (1.18-3.74) K/mm3 [place] # (Auto) (0.24-0.36) K/mm3 Eos # (Auto) (0.04-0.36) K/mm3 Baso # (Auto) (0.01-0.08) K/mm3 Manual Slide Review Sodium (136-145) mEq/L Potassium (3.5-5.1) mEq/L Chloride (98-107) mEq/L Carbon Dioxide (21-32) mEq/L Anion Gap (5-15) BUN (7-18) mg/dL Creatinine (0.55-1.02) mg/dL Est Cr Clr Drug Dosing mL/min Estimated GFR (MDRD) (>60) mL/min BUN/Creatinine Ratio (14-18) Glucose (74-106) mg/dL Lactic Acid (0.4-2.0) mmol/L Calcium (8.5-10.1) mg/dL Magnesium (1.8-2.4) mg/dl Total Bilirubin (0.2-1.0) mg/dL AST (15-37) U/L ALT (14-59) U/L Alkaline Phosphatase (46-116) U/L C-Reactive Protein 1.7 H* (<1.0) mg/dL Total Protein (6.4-8.2) g/dl Albumin (3.4-5.0) g/dl Globulin gm/dL Albumin/Globulin Ratio (1-2) Med Orders - Current: Current Medications Clonazepam (Klonopin) 1 mg PO DAILY [facility] Last Admin: 02/12/19 08:30 Dose: 1 mg Folic Acid (Folic Acid) 1 mg PO DAILY [facility] Last Admin: 02/12/19 08:29 Dose: 1 mg Furosemide (Lasix) 20 mg PO DAILY [facility] Last Admin: 02/12/19 08:29 Dose: 20 mg Hydromorphone HCl (Dilaudid) 0.5 mg IVPUSH Q2H PRN PRN Reason: Pain Last Admin: 02/11/19 01:24 Dose: 0.5 mg Sodium Chloride (Normal Saline) 1,000 mls @ 75 mls/hr IV ASDIRECTED [facility] Last Admin: 02/12/19 04:00 Dose: 75 mls/hr Potassium Chloride 10 meq/ (Premix) 100 mls @ 100 mls/hr IV Q1H [facility] Stop: 02/12/19 11:59 Last Admin: 02/12/19 08:25 Dose: 100 mls/hr Ondansetron HCl (Zofran) 4 mg IVPUSH Q4H PRN PRN Reason: Nausea/Vomiting Last Admin: 02/11/19 20:48 Dose: 4 mg Oxycodone HCl (Oxycodone) 5 mg PO Q6H PRN PRN Reason: Abdominal Pain Last Admin: 02/12/19 04:12 Dose: 5 mg Pantoprazole Sodium (Protonix) 40 mg PO DAILY [facility] Last Admin: 02/12/19 08:30 Dose: 40 mg Rifaximin (Xifaxan) 550 mg PO BID [facility] Last Admin: 02/12/19 08:28 Dose: 550 mg Sertraline HCl (Zoloft) 50 mg PO DAILY [facility] Last Admin: 02/12/19 08:29 Dose: 50 mg Sodium Chloride (Saline Flush) 10 ml FLUSH ASDIRECTED PRN PRN Reason: Keep Vein Open Last Admin: 02/10/19 22:26 Dose: 10 ml Spironolactone (Aldactone) 25 mg PO BID [facility] Last Admin: 02/12/19 08:30 Dose: 25 mg Thiamine HCl (Vitamin B-1) 100 mg PO DAILY [facility] Last Admin: 02/12/19 08:30 Dose: 100 mg Discontinued Medications Diphenhydramine HCl (Benadryl) 25 mg IV ONETIME ONE Stop: 02/12/19 08:29 Sodium Chloride (Normal Saline) 1,000 mls @ 500 mls/hr IV ONETIME ONE Stop: 02/11/19 00:00 Last Admin: 02/10/19 22:26 Dose: 500 mls/hr Magnesium Sulfate 4 gm/ Premix 50 mls @ 12.5 mls/hr IV ONETIME ONE Stop: 02/11/19 13:44 Last Admin: 02/11/19 10:22 Dose: 12.5 mls/hr Lactulose (Cephulac) 20 gm PO ONETIME ONE Stop: 02/11/19 00:13 Last Admin: 02/11/19 00:18 Dose: 20 gm Lactulose (Cephulac) 30 gm PO TID [facility] Last Admin: 02/11/19 20:30 Dose: 30 gm Potassium Chloride (Potassium Chloride) 10 meq IV ASDIRECTED [facility] - Exam Quality Assessment: No: Supplemental Oxygen General: Alert, Oriented, Lethargic Lungs: Clear to Auscultation, Normal Respiratory Effort Cardiovascular: Regular Rhythm, Tachycardia GI/Abdominal Exam: Normal Bowel Sounds, Soft, Distended, Tender (Minimal). No: Guarding, Rigid, Rebound Extremities: Normal Inspection, Non-Tender, No Pedal Edema Neurological: No New Focal Deficit Psy/Mental Status: Alert, Other - Problem List & Annotations (1) Cirrhosis of liver with ascites SNOMED Code(s): 30807707 Code(s): K74.60 - UNSPECIFIED CIRRHOSIS OF LIVER; R18.8 - OTHER ASCITES Status: Acute Current Visit: Yes Qualifiers: Hepatic cirrhosis type: alcoholic cirrhosis Qualified Code(s): K70.31 - Alcoholic cirrhosis of liver with ascites (2) Hepatic encephalopathy SNOMED Code(s): 35171531 Code(s): K72.90 - HEPATIC FAILURE, UNSPECIFIED WITHOUT COMA Status: Acute Current Visit: Yes (3) Hyponatremia SNOMED Code(s): 57115669 Code(s): E87.1 - HYPO-OSMOLALITY AND HYPONATREMIA Status: Acute Current Visit: Yes (4) Blood loss anemia SNOMED Code(s): 462863865 Code(s): D50.0 - IRON DEFICIENCY ANEMIA SECONDARY TO BLOOD LOSS (CHRONIC) Status: Acute Current Visit: Yes - Problem List Review Problem List Initiated/Reviewed/Updated: Yes - My Orders Last 24 Hours: My Active Orders 02/11/19 09:29 oxyCODONE 5 mg PO Q6H PRN 02/11/19 09:30 Folic Acid 1 mg PO DAILY Furosemide [Lasix] 20 mg PO DAILY Pantoprazole [ProTONIX] 40 mg PO DAILY Spironolactone [Aldactone] 25 mg PO BID 02/11/19 10:23 Incentive Spirometry [RT Incentive Spirometry] [RC] ASDIRECTED 02/11/19 14:33 Consult to Physical Therapy [PT Evaluation and Treatment] [CONS] Routine 02/11/19 20:45 ClonazePAM [KlonoPIN] 1 mg PO DAILY 02/11/19 Dinner Fluid Restriction [DIET] 02/11/19 Lunch Protein Restricted Diet [DIET] 02/12/19 05:20 RED BLOOD CELLS LP [BBK] Urgent TYPE AND SCREEN [BBK] Urgent 02/12/19 08:00 Potassium Chloride [KCl 10 MEQ in Water 100 ML] 10 meq Premix Bag 1 bag IV Q1H 02/12/19 08:28 Transfuse PRBC [Transfuse Red Blood Cells] [COMM] Urgent 02/12/19 08:29 Verify Patient Consent Obtain [RC] ASDIRECTED 02/12/19 09:00 Rifaximin [Xifaxan] 550 mg PO BID Sertraline [Zoloft] 50 mg PO DAILY Thiamine [Vitamin B-1] 100 mg PO DAILY 02/12/19 11:00 LACTATE SEPSIS W/ REFLEX [CHEM] Routine - Plan Plan:: Assessment * Hepatic encephalopathy secondary to noncompliance with lactulose * Cirrhosis with ascites * Blood loss anemia possibly due to menstrual cycle versus GI * Hypokalemia secondary to diarrhea secondary to lactulose * Hyponatremia likely secondary to polydipsia - improved * Hypomagnesemia - now hypomagnesemia * Coagulopathy secondary to liver disease Plan * Stop lactulose 30 mL's 3 times a day due to significant hyponatremia secondary to diarrhea * Start rifaximin 550 mg twice a day * By mouth fluid restriction secondary to her hyponatremia * Recheck magnesium later this afternoon * Monitor electrolytes and liver function * 1 unit packed red blood cells * Monitor CBC, potassium, and magnesium this afternoon * CODE STATUS: Full code * Poor prognosis overall * Child Nayak score: 12-13 class C
[2019-02-12] MEDS ORDERED: Sodium Chloride 0.9% 250 ML IV SCH (10:45)
[2019-02-12] MEDS: Lactulose Soln 10 GM/15 ML 30 ML UD Cup PO SCH ×2 (16:59→21:36)
[2019-02-12] MEDS ORDERED: cefTRIAXone 2 GM Vial IVPUSH SCH (23:30)
[2019-02-13] MEDS: cefTRIAXone 2 GM in Sodium Chloride 0.9% 100 ML IV SCH ×2 (00:13→21:33)
[2019-02-13] MEDS ORDERED: Potassium Chloride 10 MEQ Tab.ER PO ONE (07:23)
--- NOTE | 2019-02-13 08:46 | US ---
Abdominal ultrasound: Multiple real-time images of the abdomen were obtained. Comparison: Previous abdominal ultrasound of 01/09/19. Liver is small which appears stable from prior exam which is felt compatible with cirrhosis. No focal abnormality is appreciated within the liver. Moderate amount of ascites is seen throughout the abdomen. Gallbladder shows sludge. Gallbladder wall is thickened which can be seen with ascites. No biliary duct dilatation is seen. Kidneys show no hydronephrosis or mass. Right kidney length is 10.9 cm, left kidney length is 11.3 cm. Spleen size is normal with length of 10.6 cm. Aorta shows no aneurysm. Pancreas is incompletely seen. Visualized portions of the pancreas show no discrete abnormality. Inferior vena cava is patent. Portal vein shows reversed flow (hepatofugal). Impression: 1. Cirrhotic change within the liver which appears similar to prior exam. 2. Moderate amount of ascites also appearing fairly stable from prior exam. 3. Hepatofugal flow within the portal vein compatible with portal hypertension. 4. Sludge within the gallbladder. Gallbladder wall is thickened which can be seen with ascites. No biliary duct dilatation is seen. Diagnostic code #3
[2019-02-13] MEDS: Folic Acid 1 MG Tab PO SCH (09:38)
[2019-02-13] MEDS: Spironolactone 25 MG Tab PO SCH ×2 (09:38→21:38)
[2019-02-13] MEDS: Magnesium Oxide 400 MG Tab PO SCH ×2 (09:38→21:38)
[2019-02-13] MEDS: Furosemide 20 MG Tab PO SCH (09:39)
[2019-02-13] MEDS: Sertraline 50 MG Tab PO SCH (09:39)
[2019-02-13] MEDS: Rifaximin 550 MG Tab PO SCH ×2 (09:39→21:38)
[2019-02-13] MEDS: Pantoprazole 40 MG Tab.CR PO SCH (09:39)
[2019-02-13] MEDS: Thiamine 100 MG Tab PO SCH (09:39)
[2019-02-13] MEDS: Lactulose Soln 10 GM/15 ML 30 ML UD Cup PO SCH ×2 (09:39→21:37)
[2019-02-13] MEDS: HYDROmorphone 0.5 MG/0.5 ML Syringe IVPUSH PRN ×2 (10:49→23:55)
[2019-02-13] MEDS: Albumin 25% 12.5 GM in Premix Bag 1 BAG IV SCH ×9 (12:45→21:43)
[2019-02-13] MEDS: oxyCODONE 5 MG Tab PO PRN ×2 (13:58→22:24)
[2019-02-13] MEDS ORDERED: Lactulose Soln 10 GM/15 ML 30 ML UD Cup PO ONE (14:12)
--- NOTE | 2019-02-13 14:29 | OR ---
DATE OF OPERATION: 02/13/2019 SURGEON: Doni Nascimento MD PREOPERATIVE DIAGNOSIS: Alcoholic liver cirrhosis and ascites. POSTOPERATIVE DIAGNOSIS: Alcoholic liver cirrhosis and ascites. OPERATION PERFORMED: Abdominal paracentesis. ANESTHESIA: Local. FINDINGS: Removed approximately 1500 mL of straw-colored fluid. There was no murky character to the fluid and no foul smell. DISPOSITION: Stable during and after the procedure. ESTIMATED BLOOD LOSS: None. PATHOLOGY: Fluid was sent for culture and sensitivity, protein essay. INDICATION: Ms. Hand is a 33-year-old, alcoholic cirrhotic with cirrhosis and ascites. She presented with some fever and change in mental status, concern was raised for peritonitis. Ultrasound showed ascites. She was offered an abdominal paracentesis for symptoms as well as the diagnosis. She was fully informed of the major risks, benefits, and alternatives. We had a lengthy discussion. All of her questions were answered. She gave informed consent. At the presence of a nurse, it was done. DESCRIPTION OF PROCEDURE: Patt was kept in the bed. The abdomen was prepped and draped in usual sterile fashion. I personally performed an ultrasound of the abdominal cavity, identified the large fluid collection around the liver in the right upper quadrant. I could identify the loops of bowel in the adjacent space. These were avoided. The skin and subcutaneous tissue were infused with 1% lidocaine. A small melina was made with a #11 blade, and then, needle and catheter were passed into that opening while performing the ultrasound of the abdominal fluid collection. I could visualize the needle passing directly into the fluid space. I got an immediate back reyna of straw-colored fluid. The needle was covered and removed, and the catheter was advanced bluntly into the peritoneal cavity. This was then connected to tubing. Aspiration of this fluid was then collected and sent for cytology and chemistries as well as culture and sensitivity. I then connected the tubing to vacutainer and aspirated a liter of straw-colored fluid. The container was switched and then an additional 500 mL of fluid was aspirated into the vacutainer. At some point, the bowel seems covered the tubing and could no longer drain any further fluid. At this point, the suction was discontinued and the catheter was removed. Sterile dressing was applied. Great care was taken not to injure the bowel during the initial needle stick, and she had no complications and tolerated procedure well with essentially no blood loss. MMODAL /[id number]
--- NOTE | 2019-02-13 15:35 | PCM.PN ---
- General Info Date of Service: 02/13/19 Admission Dx/Problem (Free Text): Admission Diagnosis/Problem Admission Diagnosis/Problem Hepatic encephalopathy Subjective Update: February 12, 2019 Patient had 9 bowel movements over the last 24 hours. Patient continues to be confused, but now she has hypokalemia and worsening anemia. Patient's hemoglobin dropped from 9.8-7.8 and could be part of the reason for her increased ammonia and hepatic encephalopathy. Patient is on her menstrual cycle and nursing reported blood yesterday. Patient denies any significant abdominal pain. She also spent much of yesterday mildly tachycardic in the 100s to 110s. 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 Patient has had a significant improvement today. Yesterday she was lethargic likely secondary to getting a dose of clonazepam in the morning and a dose of Benadryl prior to receiving 1 unit packed red blood cells. She is more talkative today and oriented.she did have a consult with Dr. Ramos in psychiatry. Apparently she has not been taking her Zoloft as an outpatient. It appears she has not been compliant with posterior medications as outpatient. Dr. Nascimento in surgery was consulted this morning for paracentesis. Functional Status: Reports: Pain Controlled - Review of Systems General: Reports: Weakness HEENT: Reports: No Symptoms Pulmonary: Reports: No Symptoms. Denies: Shortness of Breath Cardiovascular: Reports: No Symptoms Gastrointestinal: Reports: No Symptoms Neurological: Reports: No Symptoms Psychiatric: Reports: Depression - Patient Data Vitals - Most Recent: Last Vital Signs Temp 98.8 F 02/13/19 13:59 Pulse 121 H 02/13/19 13:59 Resp 24 H 02/13/19 13:59 BP 102/42 L 02/13/19 13:59 Pulse Ox 96 02/13/19 13:59 Orthostatic Blood Pressure [ 119/64 Standing] Orthostatic Blood Pressure [ 118/59 Sitting] Orthostatic Blood Pressure [ 110/44 Supine] Weight - Most Recent: 163 lb 12.8 oz I&O - Last 24 Hours: Intake & Output 02/13/19 02/13/19 02/13/19 06:59 14:59 22:59 Intake Total 250 180 Output Total 300 Balance -50 180 Lab Results Last 24 Hours: Laboratory Results - last 24 hr 02/12/19 02/12/19 02/12/19 Range/Units 15:20 15:20 15:20 WBC 9.05 (3.98-10.04) K/mm3 RBC 2.99 L (3.98-5.22) M/mm3 Hgb 9.7 L D (11.2-15.7) gm/L Hct 29.4 L (34.1-44.9) % MCV 98.3 H D (79.4-94.8) fl MCH 32.4 H (25.6-32.2) pg MCHC 33.0 (32.2-35.5) g/dl RDW Std Deviation 60.1 H (36.4-46.3) fL Plt Count 128 L (182-369) K/mm3 MPV 8.2 L (9.4-12.3) fl Neut % (Auto) (34.0-71.1) % Lymph % (Auto) (19.3-51.7) % Bland % (Auto) (4.7-12.5) % Eos % (Auto) (0.7-5.8) Baso % (Auto) (0.1-1.2) % Neut # (Auto) (1.56-6.13) K/mm3 Lymph # (Auto) (1.18-3.74) K/mm3 Bland # (Auto) (0.24-0.36) K/mm3 Eos # (Auto) (0.04-0.36) K/mm3 Baso # (Auto) (0.01-0.08) K/mm3 Neutrophils % (Manual) 80 H (40-60) % Band Neutrophils % 0 (0-10) % Lymphocytes % (Manual) 15 L (20-40) % Atypical Lymphs % 0 % Monocytes % (Manual) 2 (2-10) % Eosinophils % (Manual) 3 (0.7-5.8) % Basophils % (Manual) 0 L (0.1-1.2) Platelet Estimate Decreased RBC Morph Comment Normal Sodium (136-145) mEq/L Potassium 3.5 (3.5-5.1) mEq/L Chloride (98-107) mEq/L Carbon Dioxide (21-32) mEq/L Anion Gap (5-15) BUN (7-18) mg/dL Creatinine (0.55-1.02) mg/dL Est Cr Clr Drug Dosing mL/min Estimated GFR (MDRD) (>60) mL/min BUN/Creatinine Ratio (14-18) Glucose (74-106) mg/dL Lactic Acid 1.5 (0.4-2.0) mmol/L Calcium (8.5-10.1) mg/dL Magnesium 1.8 (1.8-2.4) mg/dl Total Bilirubin (0.2-1.0) mg/dL AST (15-37) U/L ALT (14-59) U/L Alkaline Phosphatase (46-116) U/L Ammonia (11-32) umol/L C-Reactive Protein (<1.0) mg/dL Total Protein (6.4-8.2) g/dl Albumin (3.4-5.0) g/dl Globulin gm/dL Albumin/Globulin Ratio (1-2) Body Fluid Site Fluid Type Fluid Volume ML Fluid Color Fluid Appearance Fluid WBC (0.20-0.60) k/mm*3 Fluid RBC (0.00-0.010) 10*6/uL Fluid Diff Comment Fluid Seg Neutrophils (0-25) % Fluid Lymphocytes (0-78) % Fl Polymorphonucl Cell Fluid Glucose mg/dL Fluid Total Protein gm/dl Fluid LDH U/L Fluid Amylase U/L 02/13/19 02/13/19 02/13/19 Range/Units 06:04 06:04 06:04 WBC 9.82 (3.98-10.04) K/mm3 RBC 2.78 L (3.98-5.22) M/mm3 Hgb 9.0 L (11.2-15.7) gm/L Hct 27.3 L (34.1-44.9) % MCV 98.2 H (79.4-94.8) fl MCH 32.4 H (25.6-32.2) pg MCHC 33.0 (32.2-35.5) g/dl RDW Std Deviation 60.1 H (36.4-46.3) fL Plt Count 107 L (182-369) K/mm3 MPV 8.3 L (9.4-12.3) fl Neut % (Auto) 67.3 (34.0-71.1) % Lymph % (Auto) 20.8 (19.3-51.7) % Bland % (Auto) 7.9 (4.7-12.5) % Eos % (Auto) 3.3 (0.7-5.8) Baso % (Auto) 0.4 (0.1-1.2) % Neut # (Auto) 6.61 H (1.56-6.13) K/mm3 Lymph # (Auto) 2.04 (1.18-3.74) K/mm3 Bland # (Auto) 0.78 H (0.24-0.36) K/mm3 Eos # (Auto) 0.32 (0.04-0.36) K/mm3 Baso # (Auto) 0.04 (0.01-0.08) K/mm3 Neutrophils % (Manual) (40-60) % Band Neutrophils % (0-10) % Lymphocytes % (Manual) (20-40) % Atypical Lymphs % % Monocytes % (Manual) (2-10) % Eosinophils % (Manual) (0.7-5.8) % Basophils % (Manual) (0.1-1.2) Platelet Estimate RBC Morph Comment Sodium 135 L (136-145) mEq/L Potassium 3.5 (3.5-5.1) mEq/L Chloride 106 (98-107) mEq/L Carbon Dioxide 21 (21-32) mEq/L Anion Gap 11.5 (5-15) BUN 5 L (7-18) mg/dL Creatinine 0.9 (0.55-1.02) mg/dL Est Cr Clr Drug Dosing 78.78 mL/min Estimated GFR (MDRD) > 60 (>60) mL/min BUN/Creatinine Ratio 5.6 L (14-18) Glucose 93 (74-106) mg/dL Lactic Acid (0.4-2.0) mmol/L Calcium 7.9 L (8.5-10.1) mg/dL Magnesium 1.7 L (1.8-2.4) mg/dl Total Bilirubin 5.3 H (0.2-1.0) mg/dL AST 95 H (15-37) U/L ALT 61 H (14-59) U/L Alkaline Phosphatase 77 (46-116) U/L Ammonia 73 H (11-32) umol/L C-Reactive Protein 1.5 H* (<1.0) mg/dL Total Protein 6.9 (6.4-8.2) g/dl Albumin 1.3 L (3.4-5.0) g/dl Globulin 5.6 gm/dL Albumin/Globulin Ratio 0.2 L (1-2) Body Fluid Site Fluid Type Fluid Volume ML Fluid Color Fluid Appearance Fluid WBC (0.20-0.60) k/mm*3 Fluid RBC (0.00-0.010) 10*6/uL Fluid Diff Comment Fluid Seg Neutrophils (0-25) % Fluid Lymphocytes (0-78) % Fl Polymorphonucl Cell Fluid Glucose mg/dL Fluid Total Protein gm/dl Fluid LDH U/L Fluid Amylase U/L 02/13/19 02/13/19 02/13/19 Range/Units 11:25 11:25 11:25 WBC (3.98-10.04) K/mm3 RBC (3.98-5.22) M/mm3 Hgb (11.2-15.7) gm/L Hct (34.1-44.9) % MCV (79.4-94.8) fl MCH (25.6-32.2) pg MCHC (32.2-35.5) g/dl RDW Std Deviation (36.4-46.3) fL Plt Count (182-369) K/mm3 MPV (9.4-12.3) fl Neut % (Auto) (34.0-71.1) % Lymph % (Auto) (19.3-51.7) % Bland % (Auto) (4.7-12.5) % Eos % (Auto) (0.7-5.8) Baso % (Auto) (0.1-1.2) % Neut # (Auto) (1.56-6.13) K/mm3 Lymph # (Auto) (1.18-3.74) K/mm3 Bland # (Auto) (0.24-0.36) K/mm3 Eos # (Auto) (0.04-0.36) K/mm3 Baso # (Auto) (0.01-0.08) K/mm3 Neutrophils % (Manual) (40-60) % Band Neutrophils % (0-10) % Lymphocytes % (Manual) (20-40) % Atypical Lymphs % % Monocytes % (Manual) (2-10) % Eosinophils % (Manual) (0.7-5.8) % Basophils % (Manual) (0.1-1.2) Platelet Estimate RBC Morph Comment Sodium (136-145) mEq/L Potassium (3.5-5.1) mEq/L Chloride (98-107) mEq/L Carbon Dioxide (21-32) mEq/L Anion Gap (5-15) BUN (7-18) mg/dL Creatinine (0.55-1.02) mg/dL Est Cr Clr Drug Dosing mL/min Estimated GFR (MDRD) (>60) mL/min BUN/Creatinine Ratio (14-18) Glucose (74-106) mg/dL Lactic Acid (0.4-2.0) mmol/L Calcium (8.5-10.1) mg/dL Magnesium (1.8-2.4) mg/dl Total Bilirubin (0.2-1.0) mg/dL AST (15-37) U/L ALT (14-59) U/L Alkaline Phosphatase (46-116) U/L Ammonia (11-32) umol/L C-Reactive Protein (<1.0) mg/dL Total Protein (6.4-8.2) g/dl Albumin (3.4-5.0) g/dl Globulin gm/dL Albumin/Globulin Ratio (1-2) Body Fluid Site Fluid Type Peritoneal fluid Peritoneal fluid Peritoneal fluid Fluid Volume ML Fluid Color Fluid Appearance Fluid WBC (0.20-0.60) k/mm*3 Fluid RBC (0.00-0.010) 10*6/uL Fluid Diff Comment Fluid Seg Neutrophils (0-25) % Fluid Lymphocytes (0-78) % Fl Polymorphonucl Cell Fluid Glucose 104 mg/dL Fluid Total Protein < 2.0 gm/dl Fluid LDH 48 U/L Fluid Amylase 5 U/L 02/13/19 Range/Units 11:25 WBC (3.98-10.04) K/mm3 RBC (3.98-5.22) M/mm3 Hgb (11.2-15.7) gm/L Hct (34.1-44.9) % MCV (79.4-94.8) fl MCH (25.6-32.2) pg MCHC (32.2-35.5) g/dl RDW Std Deviation (36.4-46.3) fL Plt Count (182-369) K/mm3 MPV (9.4-12.3) fl Neut % (Auto) (34.0-71.1) % Lymph % (Auto) (19.3-51.7) % Bland % (Auto) (4.7-12.5) % Eos % (Auto) (0.7-5.8) Baso % (Auto) (0.1-1.2) % Neut # (Auto) (1.56-6.13) K/mm3 Lymph # (Auto) (1.18-3.74) K/mm3 Bland # (Auto) (0.24-0.36) K/mm3 Eos # (Auto) (0.04-0.36) K/mm3 Baso # (Auto) (0.01-0.08) K/mm3 Neutrophils % (Manual) (40-60) % Band Neutrophils % (0-10) % Lymphocytes % (Manual) (20-40) % Atypical Lymphs % % Monocytes % (Manual) (2-10) % Eosinophils % (Manual) (0.7-5.8) % Basophils % (Manual) (0.1-1.2) Platelet Estimate RBC Morph Comment Sodium (136-145) mEq/L Potassium (3.5-5.1) mEq/L Chloride (98-107) mEq/L Carbon Dioxide (21-32) mEq/L Anion Gap (5-15) BUN (7-18) mg/dL Creatinine (0.55-1.02) mg/dL Est Cr Clr Drug Dosing mL/min Estimated GFR (MDRD) (>60) mL/min BUN/Creatinine Ratio (14-18) Glucose (74-106) mg/dL Lactic Acid (0.4-2.0) mmol/L Calcium (8.5-10.1) mg/dL Magnesium (1.8-2.4) mg/dl Total Bilirubin (0.2-1.0) mg/dL AST (15-37) U/L ALT (14-59) U/L Alkaline Phosphatase (46-116) U/L Ammonia (11-32) umol/L C-Reactive Protein (<1.0) mg/dL Total Protein (6.4-8.2) g/dl Albumin (3.4-5.0) g/dl Globulin gm/dL Albumin/Globulin Ratio (1-2) Body Fluid Site Peritoneal Fluid Type Fluid Volume 3 ML Fluid Color Light yellow Fluid Appearance Clear Fluid WBC 0.07 L (0.20-0.60) k/mm*3 Fluid RBC 0.001 (0.00-0.010) 10*6/uL Fluid Diff Comment Not Reportable Fluid Seg Neutrophils 12.0 (0-25) % Fluid Lymphocytes 88.0 H (0-78) % Fl Polymorphonucl Cell Not Reportable Fluid Glucose mg/dL Fluid Total Protein gm/dl Fluid LDH U/L Fluid Amylase U/L Earnest Results Last 24 Hours: Microbiology 02/13/19 11:25 Gram Stain - Final Ascities Fluid Med Orders - Current: Current Medications Clonazepam (Klonopin) 1 mg PO BEDTIME [facility] Last Admin: 02/12/19 23:34 Dose: Not Given Folic Acid (Folic Acid) 1 mg PO DAILY [facility] Last Admin: 02/13/19 09:38 Dose: 1 mg Furosemide (Lasix) 20 mg PO DAILY [facility] Last Admin: 02/13/19 09:39 Dose: 20 mg Hydromorphone HCl (Dilaudid) 0.5 mg IVPUSH Q2H PRN PRN Reason: Pain Last Admin: 02/13/19 10:49 Dose: 0.5 mg Ceftriaxone Sodium 2 gm/ (Sodium Chloride) 100 mls @ 200 mls/hr IV BEDTIME [facility] Last Admin: 02/13/19 00:13 Dose: 200 mls/hr Albumin Human 12.5 gm/ Premix 50 mls @ 50 mls/hr IV Q1H JOHN Stop: 02/13/19 20:59 Last Admin: 02/13/19 14:45 Dose: 50 mls/hr Albumin Human 12.5 gm/ Premix 50 mls @ 50 mls/hr IV Q1H [facility] Stop: 02/15/19 17:59 Lactulose (Cephulac) 10 gm PO BID [facility] Last Admin: 02/13/19 09:39 Dose: 10 gm Magnesium Oxide (Magnesium Oxide) 400 mg PO BID [facility] Last Admin: 02/13/19 09:38 Dose: 400 mg Ondansetron HCl (Zofran) 4 mg IVPUSH Q4H PRN PRN Reason: Nausea/Vomiting Last Admin: 02/11/19 20:48 Dose: 4 mg Oxycodone HCl (Oxycodone) 5 mg PO Q6H PRN PRN Reason: Abdominal Pain Last Admin: 02/13/19 13:58 Dose: 5 mg Pantoprazole Sodium (Protonix) 40 mg PO DAILY [facility] Last Admin: 02/13/19 09:39 Dose: 40 mg Rifaximin (Xifaxan) 550 mg PO BID [facility] Last Admin: 02/13/19 09:39 Dose: 550 mg Sertraline HCl (Zoloft) 50 mg PO DAILY [facility] Last Admin: 02/13/19 09:39 Dose: 50 mg Sodium Chloride (Saline Flush) 10 ml FLUSH ASDIRECTED PRN PRN Reason: Keep Vein Open Last Admin: 02/10/19 22:26 Dose: 10 ml Spironolactone (Aldactone) 25 mg PO BID [facility] Last Admin: 02/13/19 09:38 Dose: 25 mg Thiamine HCl (Vitamin B-1) 100 mg PO DAILY [facility] Last Admin: 02/13/19 09:39 Dose: 100 mg Discontinued Medications Clonazepam (Klonopin) 1 mg PO DAILY [facility] Last Admin: 02/12/19 08:30 Dose: 1 mg Clonazepam (Klonopin) 1 mg PO BEDTIME [facility] Diphenhydramine HCl (Benadryl) 25 mg IV ONETIME ONE Stop: 02/12/19 08:29 Last Admin: 02/12/19 09:27 Dose: 25 mg Sodium Chloride (Normal Saline) 1,000 mls @ 500 mls/hr IV ONETIME ONE Stop: 02/11/19 00:00 Last Admin: 02/10/19 22:26 Dose: 500 mls/hr Sodium Chloride (Normal Saline) 1,000 mls @ 75 mls/hr IV ASDIRECTED [facility] Last Admin: 02/12/19 04:00 Dose: 75 mls/hr Magnesium Sulfate 4 gm/ Premix 50 mls @ 12.5 mls/hr IV ONETIME ONE Stop: 02/11/19 13:44 Last Admin: 02/11/19 10:22 Dose: 12.5 mls/hr Potassium Chloride 10 meq/ (Premix) 100 mls @ 100 mls/hr IV Q1H JOHN Stop: 02/12/19 11:59 Last Admin: 02/12/19 13:23 Dose: 75 mls/hr Sodium Chloride (Normal Saline) 250 mls @ 120 mls/hr IV ASDIRECTED [facility] Last Admin: 02/12/19 11:02 Dose: 100 mls/hr Lactulose (Cephulac) 20 gm PO ONETIME ONE Stop: 02/11/19 00:13 Last Admin: 02/11/19 00:18 Dose: 20 gm Lactulose (Cephulac) 30 gm PO TID JOHN Last Admin: 02/11/19 20:30 Dose: 30 gm Lactulose (Cephulac) 20 gm PO ONETIME ONE Stop: 02/13/19 14:13 Last Admin: 02/13/19 14:47 Dose: 20 gm Potassium Chloride (Potassium Chloride) 10 meq IV ASDIRECTED [facility] Potassium Chloride (Klor-Con 10) 10 meq PO ONETIME ONE Stop: 02/13/19 07:24 Last Admin: 02/13/19 09:39 Dose: 10 meq - Exam Quality Assessment: No: Supplemental Oxygen General: Alert, Oriented HEENT: Pupils Equal, Pupils Reactive Neck: Supple Lungs: Clear to Auscultation, Normal Respiratory Effort Cardiovascular: Regular Rate, Regular Rhythm GI/Abdominal Exam: Normal Bowel Sounds, Soft, Distended, Tender (mild tenderness ) - Problem List & Annotations (1) Cirrhosis of liver with ascites SNOMED Code(s): 99243280 Code(s): K74.60 - UNSPECIFIED CIRRHOSIS OF LIVER; R18.8 - OTHER ASCITES Status: Acute Current Visit: Yes Qualifiers: Hepatic cirrhosis type: alcoholic cirrhosis Qualified Code(s): K70.31 - Alcoholic cirrhosis of liver with ascites (2) Hepatic encephalopathy SNOMED Code(s): 48271944 Code(s): K72.90 - HEPATIC FAILURE, UNSPECIFIED WITHOUT COMA Status: Acute Current Visit: Yes (3) Hyponatremia SNOMED Code(s): 03643848 Code(s): E87.1 - HYPO-OSMOLALITY AND HYPONATREMIA Status: Acute Current Visit: Yes (4) Blood loss anemia SNOMED Code(s): 889417115 Code(s): D50.0 - IRON DEFICIENCY ANEMIA SECONDARY TO BLOOD LOSS (CHRONIC) Status: Acute Current Visit: Yes (5) Portal hypertension SNOMED Code(s): 01421430 Code(s): K76.6 - PORTAL HYPERTENSION Status: Acute Current Visit: Yes - Problem List Review Problem List Initiated/Reviewed/Updated: Yes - My Orders Last 24 Hours: My Active Orders 02/12/19 16:30 Lactulose [Cephulac] 10 gm PO BID 02/12/19 16:46 Consult to Physician [CONS] Routine 02/12/19 16:48 Notify Provider Consults [RC] ASDIRECTED 02/12/19 21:00 ClonazePAM [KlonoPIN] 1 mg PO BEDTIME 02/12/19 23:22 Blood Culture x2 Reflex Set [OM.PC] Stat 02/12/19 23:30 cefTRIAXone [Rocephin] 2 gm Sodium Chloride 0.9% [Normal Saline] 100 ml IV BEDTIME 02/12/19 23:38 CULTURE BLOOD [BC] Stat 02/12/19 23:45 CULTURE BLOOD [BC] Stat 02/12/19 23:47 CULTURE URINE [RM] Routine 02/13/19 09:00 Magnesium Oxide 400 mg PO BID 02/13/19 09:15 Consult to Physician [CONS] Routine 02/13/19 09:16 Notify Provider Consults [RC] ASDIRECTED 02/13/19 11:25 CULTURE BODY FLUID + SMEAR [RM] Routine MISC TEST Routine 02/13/19 12:00 Albumin 25% [Flexbumin 25%] 12.5 gm Premix Bag 1 bag IV Q1H 02/15/19 12:00 Albumin 25% [Flexbumin 25%] 12.5 gm Premix Bag 1 bag IV Q1H - Plan Plan:: Assessment * 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 Please see above Gram stain, cell count, and chemistries. Patient's cell counts showed 70 cells per milliliter. This is not consistent with spontaneous bacterial peritonitis. There were no organisms on Gram stain. proteins consistent with portal hypertension. * portal hypertension * Blood loss anemia possibly due to menstrual cycle versus GI * Hypokalemia secondary to diarrhea secondary to lactulose * Hyponatremia likely secondary to polydipsia - improved * Hypomagnesemia - now hypomagnesemia * Coagulopathy secondary to liver disease * ultrasound prior to paracentesis showed 1. Cirrhotic change within the liver which appears similar to prior exam. 2. Moderate amount of ascites also appearing fairly stable from prior exam. 3. Hepatofugal flow within the portal vein compatible with portal hypertension. 4. Sludge within the gallbladder. Gallbladder wall is thickened which can be seen with ascites. No biliary duct dilatation is seen. Plan * restart home dose of lactulose and give an extra dose in the middle of the day. * Start rifaximin 550 mg twice a day * continue Rocephin overnight and recheck cultures in the morning. * By mouth fluid restriction secondary to her hyponatremia * Recheck magnesium tomorrow * Monitor electrolytes and liver function * give potassium chloride 10 mEq by mouth 1. This is a low dose secondary to her being on spironolactone. * Monitor CBC, potassium, and magnesium this afternoon * CODE STATUS: Full code * Poor prognosis overall * Child Nayak score: 12-13 class C
[2019-02-13] MEDS ORDERED: ClonazePAM 1 MG Tab PO SCH (21:00)
[2019-02-13] MEDS: ClonazePAM 1 MG Tab PO SCH (21:38)
[2019-02-14] MEDS: Sertraline 50 MG Tab PO SCH (08:05)
[2019-02-14] MEDS: Thiamine 100 MG Tab PO SCH (08:05)
[2019-02-14] MEDS: Furosemide 20 MG Tab PO SCH (08:05)
[2019-02-14] MEDS: Lactulose Soln 10 GM/15 ML 30 ML UD Cup PO SCH (08:05)
[2019-02-14] MEDS: Folic Acid 1 MG Tab PO SCH (08:05)
[2019-02-14] MEDS: Spironolactone 25 MG Tab PO SCH (08:05)
[2019-02-14] MEDS: Rifaximin 550 MG Tab PO SCH (08:05)
[2019-02-14] MEDS: Magnesium Oxide 400 MG Tab PO SCH (08:06)
[2019-02-14] MEDS: oxyCODONE 5 MG Tab PO PRN (08:06)
[2019-02-14] MEDS: Pantoprazole 40 MG Tab.CR PO SCH (08:06)
[2019-02-14] MEDS: HYDROmorphone 0.5 MG/0.5 ML Syringe IVPUSH PRN (10:49)
[2019-02-14] MEDS: Ondansetron 4 MG/2 ML SDV IVPUSH PRN (10:58)
[2019-02-14] MEDS ORDERED: Magnesium Sulfate/Water 2 GM in Premix Bag 1 BAG IV ONE (11:13)
[2019-02-14] MEDS ORDERED: Sodium Chloride 0.9% 1,000 ML IV SCH (11:30)
[2019-02-14] MEDS ORDERED: Sodium Chloride 0.9% 1,000 ML ONE (11:31)
[2019-02-14] MEDS: Potassium Chloride 10 MEQ in Premix Bag 1 BAG IV SCH ×2 (11:34→13:16)
--- NOTE | 2019-02-14 11:56 | PCM.DCSUM1 ---
Discharge Summary - Hospital Course HPI Initial Comments: 33-year-old female with known cirrhosis with ascites came to the emergency room last night complaining of her head spinning for 1-2 days. She states for the last week and a half she has not been taking her lactulose because she does not like the way it tastes. She was discharged from [facility] 2 weeks ago after getting a 2 L paracentesis. She denies any alcohol use over the last 3-4 months. She just recently. Her sister from end-stage liver disease. She does complain of some dyspnea on exertion and abdominal pain with activity but no pain at rest. She has not had a bowel movement in a couple days. Patient also complains of being thirsty and she cannot get enough to drink. When patient arrived on the floor nursing noted that when she had a bowel movement prior to the bowel movement she had maurice blood in the jordan due to menstrual bleeding. Brief History: Patient was admitted and started back on lactulose. The next day she had a significant decrease of her potassium which required holding 2 doses of lactulose on the first day after admission. Patient was started on rifaximin at that time 550 mg twice a day. Patient did develop a temperature that evening of 99.9 and because of her underlying ascites I elected to start her on Rocephin 2 g IV. Next day she had a paracentesis of 1.5 L which only had 70 PMNs per milliliter. Patient was given 1.5 g/kg of albumin yesterday. Patient also had a drop of her hemoglobin from day one a day 2 of 2 g, from 9.8-7.8. She was given 1 unit packed red blood cells and she had recovery of her hemoglobin to 9.7. Patient had a slow decrease in her hemoglobin over the last 2 days and she is now back to 8.4. Patient is no longer on her menstrual cycle per nursing. Today she also has had dropped back of her potassium to 3.1 and her magnesium is 1.6. Both are being replaced at this time on transfer. Patient this morning complained of bilateral hand and foot pain severe enough for nursing to give her Dilaudid. Of note she is maintained sinus tachycardia ranging from 100-130 bpm throughout the hospitalization. Due to her multiple core morbidities, dropping hemoglobin, and generally not getting better she will be transferred to [facility]. Diagnosis: Stroke: No - Discharge Data Discharge Date: 02/14/19 Discharge Disposition: DC/Tfer to Acute Hospital 02 Condition: Poor - Discharge Diagnosis/Problem(s) (1) Cirrhosis of liver with ascites SNOMED Code(s): 73654280 ICD Code: K74.60 - UNSPECIFIED CIRRHOSIS OF LIVER; R18.8 - OTHER ASCITES Status: Acute Current Visit: Yes Qualifiers: Hepatic cirrhosis type: alcoholic cirrhosis Qualified Code(s): K70.31 - Alcoholic cirrhosis of liver with ascites (2) Hepatic encephalopathy SNOMED Code(s): 14887132 ICD Code: K72.90 - HEPATIC FAILURE, UNSPECIFIED WITHOUT COMA Status: Acute Current Visit: Yes (3) Hyponatremia SNOMED Code(s): 78897478 ICD Code: E87.1 - HYPO-OSMOLALITY AND HYPONATREMIA Status: Acute Current Visit: Yes (4) Blood loss anemia SNOMED Code(s): 489125656 ICD Code: D50.0 - IRON DEFICIENCY ANEMIA SECONDARY TO BLOOD LOSS (CHRONIC) Status: Acute Current Visit: Yes (5) Portal hypertension SNOMED Code(s): 05424939 ICD Code: K76.6 - PORTAL HYPERTENSION Status: Acute Current Visit: Yes - Patient Summary/Data Consults: Consultations 02/11/19 14:33 Consult to Physical Therapy [PT Evaluation and Treatment] [CONS] Routine 02/12/19 16:46 Consult to Physician [CONS] Routine 02/13/19 09:15 Consult to Physician [CONS] Routine - Discharge Plan *PRESCRIPTION DRUG MONITORING PROGRAM REVIEWED*: No *COPY OF PRESCRIPTION DRUG MONITORING REPORT IN PATIENT SKY: No Prescriptions/Med Rec: Lactulose [Cephulac] 20 gm PO BID #1 cup Magnesium Oxide 400 mg PO BID #30 tablet Rifaximin [Xifaxan] 550 mg PO BID #60 tablet Home Medications: Home Meds Folic Acid 1 tab PO DAILY 01/27/19 [History] Pantoprazole [ProTONIX] 40 mg PO DAILY 01/27/19 [History] Sertraline [Zoloft] 50 mg PO DAILY 01/27/19 [History] Thiamine HCl [Vitamin B-1] 1 tab PO DAILY 01/27/19 [History] Furosemide 20 mg PO DAILY #30 tablet 01/28/19 [Rx] Spironolactone [Aldactone] 25 mg PO BID #60 tablet 01/28/19 [Rx] oxyCODONE HCl [Roxicodone] 5 mg PO Q6H PRN #20 tablet 01/28/19 [Rx] clonazePAM [Klonopin] 1 mg PO BEDTIME 02/12/19 [History] Lactulose [Cephulac] 20 gm PO BID #1 cup 02/14/19 [Rx] Magnesium Oxide 400 mg PO BID #30 tablet 02/14/19 [Rx] Rifaximin [Xifaxan] 550 mg PO BID #60 tablet 02/14/19 [Rx] Referrals: PCP,None [Primary Care Provider] - - Discharge Summary/Plan Comment DC Time >30 min.: Yes Discharge Summary/Plan Comment: transferred to [facility] for higher level of care secondary to possible GI bleed. accepting physician Dr. Baptiste. - General Info Date of Service: 02/14/19 Admission Dx/Problem (Free Text: Admission Diagnosis/Problem Admission Diagnosis/Problem Hepatic encephalopathy Subjective Update: See brief history - Review of Systems General: Reports: Fatigue HEENT: Reports: No Symptoms Pulmonary: Denies: Shortness of Breath Cardiovascular: Denies: Chest Pain, Palpitations, Dyspnea on Exertion Gastrointestinal: Denies: Abdominal Pain Genitourinary: Denies: Dysuria Musculoskeletal: Reports: Hand Pain, Leg Pain, Foot Pain Neurological: Reports: Confusion - Patient Data Vitals - Most Recent: Last Vital Signs Temp 98.1 F 02/14/19 07:51 Pulse 118 H 02/14/19 07:51 Resp 18 02/14/19 07:51 BP 99/41 L 02/14/19 07:51 Pulse Ox 97 02/14/19 07:51 Orthostatic Blood Pressure [ 119/64 Standing] Orthostatic Blood Pressure [ 118/59 Sitting] Orthostatic Blood Pressure [ 110/44 Supine] Weight - Most Recent: 161 lb 11.2 oz I&O - Last 24 hours: Intake & Output 02/13/19 02/14/19 02/14/19 22:59 06:59 14:59 Intake Total 530 550 240 Balance 530 550 240 Lab Results - Last 24 hrs: Laboratory Results - last 24 hr 02/13/19 02/13/19 02/13/19 Range/Units 11:25 11:25 11:25 WBC (3.98-10.04) K/mm3 RBC (3.98-5.22) M/mm3 Hgb (11.2-15.7) gm/L Hct (34.1-44.9) % MCV (79.4-94.8) fl MCH (25.6-32.2) pg MCHC (32.2-35.5) g/dl RDW Std Deviation (36.4-46.3) fL Plt Count (182-369) K/mm3 MPV (9.4-12.3) fl Neut % (Auto) (34.0-71.1) % Lymph % (Auto) (19.3-51.7) % [place] % (Auto) (4.7-12.5) % Eos % (Auto) (0.7-5.8) Baso % (Auto) (0.1-1.2) % Neut # (Auto) (1.56-6.13) K/mm3 Lymph # (Auto) (1.18-3.74) K/mm3 [place] # (Auto) (0.24-0.36) K/mm3 Eos # (Auto) (0.04-0.36) K/mm3 Baso # (Auto) (0.01-0.08) K/mm3 Sodium (136-145) mEq/L Potassium (3.5-5.1) mEq/L Chloride (98-107) mEq/L Carbon Dioxide (21-32) mEq/L Anion Gap (5-15) BUN (7-18) mg/dL Creatinine (0.55-1.02) mg/dL Est Cr Clr Drug Dosing mL/min Estimated GFR (MDRD) (>60) mL/min BUN/Creatinine Ratio (14-18) Glucose (74-106) mg/dL Calcium (8.5-10.1) mg/dL Magnesium (1.8-2.4) mg/dl Total Bilirubin (0.2-1.0) mg/dL AST (15-37) U/L ALT (14-59) U/L Alkaline Phosphatase (46-116) U/L Total Protein (6.4-8.2) g/dl Albumin (3.4-5.0) g/dl Globulin gm/dL Albumin/Globulin Ratio (1-2) Body Fluid Site Fluid Type Peritoneal fluid Peritoneal fluid Peritoneal fluid Fluid Volume ML Fluid Color Fluid Appearance Fluid WBC (0.20-0.60) k/mm*3 Fluid RBC (0.00-0.010) 10*6/uL Fluid Diff Comment Fluid Seg Neutrophils (0-25) % Fluid Lymphocytes (0-78) % Fl Polymorphonucl Cell Fluid Glucose 104 mg/dL Fluid Total Protein < 2.0 gm/dl Fluid LDH 48 U/L Fluid Amylase 5 U/L 02/13/19 02/14/19 02/14/19 Range/Units 11:25 10:35 10:35 WBC 8.85 (3.98-10.04) K/mm3 RBC 2.59 L (3.98-5.22) M/mm3 Hgb 8.4 L (11.2-15.7) gm/L Hct 25.8 L (34.1-44.9) % MCV 99.6 H (79.4-94.8) fl MCH 32.4 H (25.6-32.2) pg MCHC 32.6 (32.2-35.5) g/dl RDW Std Deviation 59.2 H (36.4-46.3) fL Plt Count 101 L (182-369) K/mm3 MPV 8.4 L (9.4-12.3) fl Neut % (Auto) 69.7 (34.0-71.1) % Lymph % (Auto) 19.7 (19.3-51.7) % [place] % (Auto) 7.9 (4.7-12.5) % Eos % (Auto) 2.4 (0.7-5.8) Baso % (Auto) 0.2 (0.1-1.2) % Neut # (Auto) 6.17 H (1.56-6.13) K/mm3 Lymph # (Auto) 1.74 (1.18-3.74) K/mm3 [place] # (Auto) 0.70 H (0.24-0.36) K/mm3 Eos # (Auto) 0.21 (0.04-0.36) K/mm3 Baso # (Auto) 0.02 (0.01-0.08) K/mm3 Sodium 137 (136-145) mEq/L Potassium 3.1 L (3.5-5.1) mEq/L Chloride 107 (98-107) mEq/L Carbon Dioxide 20 L (21-32) mEq/L Anion Gap 13.1 (5-15) BUN 5 L (7-18) mg/dL Creatinine 0.9 (0.55-1.02) mg/dL Est Cr Clr Drug Dosing 78.78 mL/min Estimated GFR (MDRD) > 60 (>60) mL/min BUN/Creatinine Ratio 5.6 L (14-18) Glucose 114 H (74-106) mg/dL Calcium 8.6 (8.5-10.1) mg/dL Magnesium 1.6 L (1.8-2.4) mg/dl Total Bilirubin 6.1 H (0.2-1.0) mg/dL AST 62 H (15-37) U/L ALT 41 (14-59) U/L Alkaline Phosphatase 59 (46-116) U/L Total Protein 7.0 (6.4-8.2) g/dl Albumin 2.8 L (3.4-5.0) g/dl Globulin 4.2 gm/dL Albumin/Globulin Ratio 0.7 L (1-2) Body Fluid Site Peritoneal Fluid Type Fluid Volume 3 ML Fluid Color Light yellow Fluid Appearance Clear Fluid WBC 0.07 L (0.20-0.60) k/mm*3 Fluid RBC 0.001 (0.00-0.010) 10*6/uL Fluid Diff Comment Not Reportable Fluid Seg Neutrophils 12.0 (0-25) % Fluid Lymphocytes 88.0 H (0-78) % Fl Polymorphonucl Cell Not Reportable Fluid Glucose mg/dL Fluid Total Protein gm/dl Fluid LDH U/L Fluid Amylase U/L DIANA Results - Last 24 hrs: Microbiology 02/13/19 11:25 Gram Stain - Final Ascities Fluid Body Fluid Culture - Preliminary NO GROWTH AFTER 1 DAY 02/12/19 23:45 Aerobic Blood Culture - Preliminary Blood - Venous - Lab Draw NO GROWTH AFTER 1 DAY Anaerobic Blood Culture - Preliminary NO GROWTH AFTER 1 DAY 02/12/19 23:38 Aerobic Blood Culture - Preliminary Blood - Venous NO GROWTH AFTER 1 DAY Anaerobic Blood Culture - Preliminary NO GROWTH AFTER 1 DAY Med Orders - Current: Current Medications Clonazepam (Klonopin) 1 mg PO BEDTIME [facility] Last Admin: 02/13/19 21:38 Dose: 1 mg Folic Acid (Folic Acid) 1 mg PO DAILY [facility] Last Admin: 02/14/19 08:05 Dose: 1 mg Furosemide (Lasix) 20 mg PO DAILY [facility] Last Admin: 02/14/19 08:05 Dose: 20 mg Hydromorphone HCl (Dilaudid) 0.5 mg IVPUSH Q2H PRN PRN Reason: Pain Last Admin: 02/14/19 10:49 Dose: 0.5 mg Ceftriaxone Sodium 2 gm/ (Sodium Chloride) 100 mls @ 200 mls/hr IV BEDTIME [facility] Last Admin: 02/13/19 21:33 Dose: 200 mls/hr Potassium Chloride 10 meq/ (Premix) 100 mls @ 100 mls/hr IV Q1H JOHN Stop: 02/14/19 15:14 Last Admin: 02/14/19 11:34 Dose: 100 mls/hr Magnesium Sulfate 2 gm/ Premix 50 mls @ 25 mls/hr IV ONETIME ONE Stop: 02/14/19 13:12 Last Admin: 02/14/19 11:35 Dose: 25 mls/hr Sodium Chloride (Normal Saline) 1,000 mls @ 50 mls/hr IV ASDIRECTED [facility] Last Admin: 02/14/19 11:37 Dose: 50 mls/hr Lactulose (Cephulac) 20 gm PO BID [facility] Last Admin: 02/14/19 08:05 Dose: 20 gm Magnesium Oxide (Magnesium Oxide) 400 mg PO BID [facility] Last Admin: 02/14/19 08:06 Dose: 400 mg Ondansetron HCl (Zofran) 4 mg IVPUSH Q4H PRN PRN Reason: Nausea/Vomiting Last Admin: 02/14/19 10:58 Dose: 4 mg Oxycodone HCl (Oxycodone) 5 mg PO Q6H PRN PRN Reason: Abdominal Pain Last Admin: 02/14/19 08:06 Dose: 5 mg Pantoprazole Sodium (Protonix) 40 mg PO DAILY [facility] Last Admin: 02/14/19 08:06 Dose: 40 mg Rifaximin (Xifaxan) 550 mg PO BID [facility] Last Admin: 02/14/19 08:05 Dose: 550 mg Sertraline HCl (Zoloft) 50 mg PO DAILY [facility] Last Admin: 02/14/19 08:05 Dose: 50 mg Sodium Chloride (Saline Flush) 10 ml FLUSH ASDIRECTED PRN PRN Reason: Keep Vein Open Last Admin: 02/10/19 22:26 Dose: 10 ml Spironolactone (Aldactone) 25 mg PO BID [facility] Last Admin: 02/14/19 08:05 Dose: 25 mg Thiamine HCl (Vitamin B-1) 100 mg PO DAILY [facility] Last Admin: 02/14/19 08:05 Dose: 100 mg Discontinued Medications Clonazepam (Klonopin) 1 mg PO DAILY [facility] Last Admin: 02/12/19 08:30 Dose: 1 mg Clonazepam (Klonopin) 1 mg PO BEDTIME JOHN Diphenhydramine HCl (Benadryl) 25 mg IV ONETIME ONE Stop: 02/12/19 08:29 Last Admin: 02/12/19 09:27 Dose: 25 mg Sodium Chloride (Normal Saline) 1,000 mls @ 500 mls/hr IV ONETIME ONE Stop: 02/11/19 00:00 Last Admin: 02/10/19 22:26 Dose: 500 mls/hr Sodium Chloride (Normal Saline) 1,000 mls @ 75 mls/hr IV ASDIRECTED [facility] Last Admin: 02/12/19 04:00 Dose: 75 mls/hr Magnesium Sulfate 4 gm/ Premix 50 mls @ 12.5 mls/hr IV ONETIME ONE Stop: 02/11/19 13:44 Last Admin: 02/11/19 10:22 Dose: 12.5 mls/hr Potassium Chloride 10 meq/ (Premix) 100 mls @ 100 mls/hr IV Q1H JOHN Stop: 02/12/19 11:59 Last Admin: 02/12/19 13:23 Dose: 75 mls/hr Sodium Chloride (Normal Saline) 250 mls @ 120 mls/hr IV ASDIRECTED [facility] Last Admin: 02/12/19 11:02 Dose: 100 mls/hr Albumin Human 12.5 gm/ Premix 50 mls @ 50 mls/hr IV Q1H JOHN Stop: 02/13/19 20:59 Last Admin: 02/13/19 21:43 Dose: 50 mls/hr Albumin Human 12.5 gm/ Premix 50 mls @ 50 mls/hr IV Q1H [facility] Stop: 02/15/19 17:59 Sodium Chloride (Normal Saline) Confirm Administered Dose 1,000 mls @ as directed .ROUTE .STK-MED ONE Stop: 02/14/19 11:32 Last Admin: 02/14/19 11:37 Dose: Not Given Lactulose (Cephulac) 20 gm PO ONETIME ONE Stop: 02/11/19 00:13 Last Admin: 02/11/19 00:18 Dose: 20 gm Lactulose (Cephulac) 30 gm PO TID [facility] Last Admin: 02/11/19 20:30 Dose: 30 gm Lactulose (Cephulac) 10 gm PO BID [facility] Last Admin: 02/13/19 09:39 Dose: 10 gm Lactulose (Cephulac) 20 gm PO ONETIME ONE Stop: 02/13/19 14:13 Last Admin: 02/13/19 14:47 Dose: 20 gm Potassium Chloride (Potassium Chloride) 10 meq IV ASDIRECTED [facility] Potassium Chloride (Klor-Con 10) 10 meq PO ONETIME ONE Stop: 02/13/19 07:24 Last Admin: 02/13/19 09:39 Dose: 10 meq - Exam General: Reports: Lethargic HEENT: Reports: Pupils Equal Neck: Reports: Supple Lungs: Reports: Clear to Auscultation, Normal Respiratory Effort Cardiovascular: Reports: Regular Rhythm, Tachycardia GI/Abdominal Exam: Normal Bowel Sounds, Distended, Tender. No: Guarding, Rigid , Rebound Extremities: Normal Inspection, No Pedal Edema, Normal Capillary Refill Psy/Mental Status: Denies: Alert, Normal Affect, Normal Mood
[2019-02-14 12:09] VITALS: BP 104/42
--- NOTE | 2019-02-14 12:59 | CONS ---
CONSULTING PHYSICIAN: Jad Ramos MD DATE OF CONSULTATION: 02/13/2019 This is a 60-minute inpatient telemedicine event. Site where the services are provided is [facility] in [place], [place]. Site where the services are provided from our office is in [facility]. Length of time for this 60-minute inpatient clinical event is 60 minutes. IDENTIFICATION: The patient is a 33-year-old female, who was admitted to the inpatient Med/Surg Unit at [facility] in [place], [place]. She is seen for psychiatric evaluation as per the request of staff attending, Dr. Griffith and his treatment team. CHIEF COMPLAINT: "I have pneumonia." HISTORY OF PRESENT ILLNESS: The patient is a 33-year-old female, who is admitted to the inpatient Med/Surg Unit at [facility] in [place], [place] on 02/11/2019 for complications of hepatic encephalopathy as well as pneumonia. The patient is being evaluated now for depression per the request of the treatment team. The patient is reporting she has a history of significant alcohol abuse, but she states that she has been sober for the past 4 months. She states that she has been trying to maintain sobriety and she is having complications from drinking too much in terms of her GI system. She is also endorsing symptoms of her depression noting "I just lost my sister and I just lost my cousin" within the past year. She states that her family has a very long history of heavy alcohol use and alcoholism and she is trying to break from that cycle. She states that she has been prescribed Klonopin and Zoloft, but she notes "I never really took them at home" even though she knows that they have been started since she has been on the inpatient Med/Surg Unit. She denies that she is suicidal or homicidal. She denies any psychotic, delusional, or paranoid symptoms. She apparently goes back and is stating that she never took them in home, stating "well, I did get them from a doctor in [place] and I would just take the meds that he was giving me," so it seems she may have actually been taking them, but she is not sure. In any event, she is open to trying the medications now to see if they will help her with her mood because when she gets out, it is her intent to try and stay sober and she feels that if she is less depressed, she will stand a better chance of doing that. She states that she is feeling quite a bit better since her admission on 02/11/2019 from a physical standpoint. MEDICATIONS: At time of admission: 1. Klonopin 1 mg at bedtime. 2. Zoloft 50 mg daily. 3. Oxycodone. ALLERGIES: No known drug allergies. PAST MEDICAL HISTORY: 1. Hepatic encephalopathy. 2. Pneumonia. REVIEW OF SYSTEMS: Aside from hepatic, pulmonary, and possibly neuro, all other major organ systems are negative at this point in time for acute difficulties or complications. FAMILY PSYCHIATRIC AND CD HISTORY: The patient reports history of depression in mother. Again, long history of alcoholism on both sides of the family and with her siblings. PAST PSYCHIATRIC AND CD HISTORY: The patient reports 1 psychiatric hospitalization in the past back in 2008 secondary to a suicide attempt. She reports multiple chemical dependency treatments. She states the longest sobriety was for 5 years during her mid teens. She reports 1 suicide attempt back in 2008. Past psychiatric diagnosis includes depression and anxiety. She states that she has been on psychiatric medications, but she is not sure what the names of those are, except what she is currently prescribed at the moment, and then she is uncertain whether she has been taking these medications regularly or not. SOCIAL HISTORY: The patient was born in [place], [place], raised in [place] in [place], [place]. She has 3 brothers and 2 sisters. The patient's highest level of education is a GED. She is currently unemployed. She is receiving child support for her 3 children. She has never been , not involved in any current relationship. She lives in [place] for the most part, spent some time in [place]. She does live with her 3 children, ages 10, 9, and 7. While she is in the hospital, one of her family members is taking care of 1 children and then the father of the other 2 children is taking care of the other kids. The patient denies any prior service or any legal difficulties. She is raised Yazidi in terms of her naomy formation. In her leisure time, she enjoys fishing, walking, baseball, swimming, and then taking the kids to the library. MENTAL STATUS EXAM: The patient is a 33-year-old soft-spoken female of descent on her father's side and on her mother's side. She is in no apparent distress. Speech is of regular rate and rhythm. The patient is cognitively and oriented x3. Psychomotor activity is within normal limits. There are no abnormal motor movements or tics observed. Gait and station are not observed. This patient is lying in bed for the purposes of the inpatient psychiatric consultation. Mood is depressed. Affect is consistent with stated mood, cooperative overall for the purposes of the intake interview with somewhat restricted. There is no behavioral or stated evidence of acute suicidal or homicidal ideation or acute psychotic, delusional, or paranoid symptoms. Thought processes are organized overall. There are no acute manic symptoms or loose associations evident. Judgment and insight appear unimpaired at this point in time. Motivation for help appears good. VITALS: At time of presentation; 98/42, 112, 22, 98.8 degrees. IMPRESSION: [place] I: 1. Major depressive disorder, F32.2. 2. Anxiety disorder, not otherwise specified, F41.9. 3. Alcohol dependence, currently in remission x4 months, F10.20. [place] II: None. [place] III: 1. Hepatic encephalopathy. 2. Pneumonia. 3. Suspected cirrhotic processes of the liver. [place] IV: Severe. [place] V: 60. PLAN: 1. Recommend beginning and continuing Zoloft 50 mg q.a.m. as started on admission to help with the patient's symptoms of depression. 2. May also give Klonopin 1 mg at bedtime for anxiety reduction, sleep initiation and maintenance while patient is on the unit. 3. Other medications as dosed and prescribed by the patient's inpatient primary medical treatment team. 4. Sobriety. 5. Pastoral guidance. 6. AA rep to visit the patient while on unit. 7. Recommend the patient to follow up with Outpatient Psychiatry when she is medically stabilized and discharged to the community to assess overall function and efficacy of her newly initiated psychiatric medication regimen. 8. Recommend the patient to follow up sooner if any complications in the interim. 9. We will continue to follow up with the patient on an as-needed basis while she remains on the inpatient Med/Surg Unit. 10.Medication compliance. 11.Crisis plan is in place. MMODAL /[id number]
[2019-02-15] MEDS ORDERED: Albumin 25% 12.5 GM in Premix Bag 1 BAG IV SCH (12:00)
== END 2019-02-14 13:27 | DRG 433 ==
LOC: JD.ED 20:40 → JD.MS 02-11 00:36
PROVIDERS: ADMIT Family Medicine; ATTEND Family Medicine
PROC: 30233N1 Transfusion of Nonautologous Red Blood Cells into Peripheral Vein, Percutaneous Approach (ICD-10-PCS; 2019-02-12)
PROC: 0W9G3ZX Drainage of Peritoneal Cavity, Percutaneous Approach, Diagnostic (ICD-10-PCS; principal; 2019-02-13)
DX: K70.31 Alcoholic cirrhosis of liver with ascites (principal); E87.1 Hypo-osmolality and hyponatremia; D68.9 Coagulation defect, unspecified; K76.6 Portal hypertension; E83.42 Hypomagnesemia; Z79.899 Other long term (current) drug therapy; G43.909 Migraine, unspecified, not intractable, without status migrainosus; H54.7 Unspecified visual loss; K72.90 Hepatic failure, unspecified without coma; K21.9 Gastro-esophageal reflux disease without esophagitis; R31.0 Gross hematuria; F41.9 Anxiety disorder, unspecified; F10.21 Alcohol dependence, in remission; E87.6 Hypokalemia; D50.0 Iron deficiency anemia secondary to blood loss (chronic); R19.7 Diarrhea, unspecified; F32.9 Major depressive disorder, single episode, unspecified; Z91.19 Patient's noncompliance with other medical treatment and regimen
CPT/HCPCS: 36415; 70450; 71045; 80053; 82140; 83735; 85007; 85027; 85610; 85730; 86140; 96360; 96361; 99284; A9270; J7040; 36430; 76700; 76700-26; 82150; 82945; 83605; 83615; 84132; 84157; 85025; 86850; 86900; 86901; 86922; 87040; 87070; 87086; 87088; 87205; 89050; 97110-GP; 97116-GP; 97162-GP; C1729; J0696; J1170; J1200; J2405; J3475; J3480; J7030; J7050; P9016; P9047

== ENCOUNTER 2024-03-30 08:56 | Emergency (ER) | payer MEDICAID, OTHER, SELFPAY ==
[2024-03-30] MEDS: Sodium Chloride 0.9% 1,000 ML IV ONE (09:04)
[2024-03-30] MEDS: Naloxone 0.4 MG/ML SDV IVPUSH ONE (09:17)
[2024-03-30 09:19] LABS: BASOPHILS PERCENT AUTO 0.3 % (0.0-1.0); EOSINOPHILS PERCENT AUTO 0.1 % (0.0-6.0); HEMATOCRIT 37.9 % (37.0-47.0); HEMOGLOBIN 11.3 gm/dl (12.0-16.0); IMMATURE GRAN ABSOLUTE AUTO 0.09 K/mm3 (0.00-0.05); IMMATURE GRAN PERCENT AUTO 0.6 % (0.0-0.4); LYMPHOCYTES ABSOLUTE AUTO 1.3 K/mm3 (1.0-4.8); LYMPHOCYTES PERCENT AUTO 8.7 % (24.0-44.0); MEAN CORPUSCULAR HEMOGLOBIN 28.2 pg (28.0-32.0); MEAN CORPUSCULAR HGB CONC 29.8 g/dl (32.0-36.0); MEAN CORPUSCULAR VOLUME 94.5 fl (83.0-99.0); MEAN PLATELET VOLUME 10.1 fl (9.4-12.3); MONOCYTES ABSOLUTE AUTO 0.7 K/mm3 (0.0-0.8); MONOCYTES PERCENT AUTO 4.8 % (0.0-8.0); NEUTROPHILS ABSOLUTE AUTO 12.6 K/mm3 (1.8-7.7); NEUTROPHILS PERCENT AUTO 85.5 % (41.0-71.0); PLATELET COUNT,PLT 110 K/mm3 (150-400); RED BLOOD CELL COUNT 4.01 M/mm3 (4.10-5.30); WHITE BLOOD CELL COUNT,WBC 14.68 K/mm3 (3.9-11.3)
[2024-03-30 09:37] LABS: APPEARANCE,URINE CLEAR (Clear); BILIRUBIN,URINE 1+ (Negative); COLOR,URINE YELLOW (Yellow); GLUCOSE,URINE 3+ (Negative); KETONES,URINE 3+ (Negative); LEUKOCYTE ESTERASE,URINE NEGATIVE (Negative); NITRITE,URINE NEGATIVE (Negative); OCCULT BLOOD,URINE 2+ (Negative); PROTEIN,URINE 2+ (Negative); UROBILINOGEN,URINE 0.2 (0.2-1.0)
[2024-03-30 09:45] LABS: BARBITURATE SCREEN,URINE NEGATIVE (CUTOFF=200); BENZODIAZEPINES SCREEN,URINE NEGATIVE (CUTOFF=150); BUPRENORPHINE SCREEN,URINE NEGATIVE (CUTOFF=10); METHADONE SCREEN, URINE NEGATIVE (CUTOFF=200); METHAMPHETAMINES SCREEN, URINE NEGATIVE (CUTOFF=500); OXYCODONE SCREEN,URINE NEGATIVE (CUT0FF=100); THC SCREEN,URINE 20 NG/ML NEGATIVE (CUTOFF=50)
[2024-03-30 09:49] LABS: AMPHETAMINES SCREEN, URINE NEGATIVE (CUTOFF=500)
[2024-03-30 09:53] LABS: A/G RATIO 0.5 (1-2); ALANINE AMINOTRANSFERASE,ALT 34 U/L (14-59); ALBUMIN 2.7 g/dl (3.4-5.0); ALKALINE PHOSPHATASE 103 U/L (46-116); ASPARTATE AMNIOTRANSFERASE,AST 69 U/L (15-37); BILIRUBIN TOTAL 9.2 mg/dL (0.2-1.0); BLOOD UREA NITROGEN,BUN 15 mg/dL (7-18); BUN/CREATININE RATIO 11.5 (14-18); CALCIUM 8.6 mg/dL (8.5-10.1); CARBON DIOXIDE,CO2 17 mEq/L (21-32); CHLORIDE,CL 101 mEq/L (98-107); ESTIMATED GFR 55 mL/min (>60); ETHANOL BLOOD MEDICAL 0.16 gm% (0.00); GLUCOSE RANDOM 384 mg/dL (70-99); MAGNESIUM 1.7 mg/dL (1.8-2.4); TROPONIN I HIGH SENSITIVITY 7 pg/mL (<=51)
[2024-03-30 09:58] LABS: LACTIC ACID 13.7 mmol/L (0.4-2.0)
[2024-03-30 10:01] LABS: ANION GAP 27.7 (5-15)
[2024-03-30 10:08] LABS: POTASSIUM,K 3.7 mEq/L (3.5-5.1); SODIUM,NA 142 mEq/L (136-145)
[2024-03-30 10:09] LABS: CREATININE 1.3 mg/dL (0.55-1.02); PROTEIN TOTAL,TP 8.7 g/dl (6.4-8.2)
[2024-03-30 10:30] VITALS: BP 136/65; PULSE 104
[2024-03-30] MEDS: Sodium Chloride 0.9% 1,000 ML IV SCH (10:31)
[2024-03-30] MEDS: Sodium Chloride 0.9% 10 ML Syringe FLUSH PRN (10:31)
[2024-03-30 10:54] LABS: INR 1.63; PROTHROMBIN TIME 16.7 SECONDS (9.7-12.0)
[2024-03-30 11:25] LABS: EPITHELIAL CELLS,URINE 0-5 /hpf (0-5); RBC,URINE 0-5 /hpf (0-5); WBC,URINE 0-5 /hpf (0-5)
[2024-03-30 11:26] LABS: BACTERIA,URINE FEW /hpf (FEW); MUCUS,URINE FEW /hpf (FEW)
== END 2024-03-30 11:30 ==
LOC: JD.ED 08:56
DX: S06.5XAA Traumatic subdural hemorrhage with loss of consciousness status unknown, initial encounter (principal); R56.9 Unspecified convulsions; Y09 Assault by unspecified means
CPT/HCPCS: 36415; 80053; 80306; 80307; 81001; 82947; 83605; 83735; 84484; 85025; 85610; 93005; 96361; 96374; 99285; J2310; J3490; J7030; 70450; 70450-26; 71045; 71045-26; 72125; 72125-26